=== PATIENT | female | born 1995 | race African-American/Black ===

== ENCOUNTER 2016-10-09 04:19 | Inpatient (IN) | payer OTHER, BC ==
--- NOTE | 2016-10-09 04:52 | PDOC ---
History of Present Illness - General History Source: Patient Exam Limitations: No Limitations - History of Present Illness Initial Comments: 10/09/16 06:11 The patient is a 21 year old female with no significant past medical history who presents to the ED with complaints of epigastric pain for one day. The patient reports sharp mid epigastric with associated nausea. She reports multiple episodes of vomiting yellow bile. Denies fever or chills. Denies chest pain or shortness of breath. Denies dysuria or changes in urinary output. Denies any other symptoms. <Jadiel Granados - Last Filed: 10/09/16 06:11> <Edwige Calixto - Last Filed: 10/09/16 07:14> <Lien Verma - Last Filed: 10/09/16 13:26> - General Stated Complaint: ABDOMINAL PAIN, VOMITING Time Seen by Provider: 10/09/16 04:49 Past History <Jadiel Granados - Last Filed: 10/09/16 06:11> - Past Medical History Anemia: No Asthma: No Cancer: No Cardiac Disorders: No CVA: No COPD: No CHF: No Dementia: No Diabetes: No GI Disorders: No Disorders: No HTN: No Hypercholesterolemia: No Liver Disease: No Seizures: No Thyroid Disease: No - Surgical History Abdominal Surgery: No Appendectomy: No Cardiac Surgery: No Cholecystectomy: No Lung Surgery: No Neurologic Surgery: No Orthopedic Surgery: No - Immunization History Immunization Up to Date: Yes - Psycho/Social/Smoking Cessation Hx Anxiety: No Suicidal Ideation: No Smoking Status: Yes Smoking History: Former smoker Have you smoked in the past 12 months: No Number of Cigarettes Smoked Daily: 5 If you are a former smoker, when did you quit?: 2013 Hx Alcohol Use: No Drug/Substance Use Hx: No Substance Use Type: None Hx Substance Use Treatment: No <Edwige Calixto - Last Filed: 10/09/16 07:14> <Lien Verma - Last Filed: 10/09/16 13:26> - Past Medical History Allergies/Adverse Reactions: Allergies Allergy/AdvReac Type Severity Reaction Status Date / Time Shellfish Allergy Swelling Verified 10/09/16 05:00 PEANUTS Allergy Swelling Uncoded 10/09/16 05:00 Home Medications: Ambulatory Orders NK [No Known Home Medication] 12/27/15 Review of Systems - Review of Systems Able to Perform ROS?: Yes Comments:: 10/09/16 06:11 CONSTITUTIONAL: Absent: fever, chills, diaphoresis, generalized weakness, malaise, loss of appetite HEENT: Absent: rhinorrhea, nasal congestion, throat pain, throat swelling, difficulty swallowing, mouth swelling, ear pain, eye pain, visual Changes CARDIOVASCULAR: Absent: chest pain, syncope, palpitations, irregular heart rate, lightheadedness , peripheral edema RESPIRATORY: Absent: cough, shortness of breath, dyspnea with exertion, orthopnea, wheezing, stridor, hemoptysis GASTROINTESTINAL: + vomiting, epigastric pain Absent: abdominal distension, diarrhea, constipation, melena, hematochezia GENITOURINARY: Absent: dysuria, frequency, urgency, hesitancy, hematuria, flank pain, genital pain MUSCULOSKELETAL: Absent: myalgia, arthralgia, joint swelling SKIN: Absent: rash, itching, pallor HEMATOLOGIC/IMMUNOLOGIC: Absent: easy bleeding, easy bruising, lymphadenopathy, frequent infections ENDOCRINE: Absent: unexplained weight gain, unexplained weight loss, heat intolerance, cold intolerance NEUROLOGIC: Absent: headache, focal weakness or paresthesias, dizziness, unsteady gait, seizure, mental status changes, bladder or bowel incontinence PSYCHIATRIC: Absent: anxiety, depression, suicidal or homicidal ideation, hallucinations. All Other Systems: Reviewed and Negative <Jadiel Granados - Last Filed: 10/09/16 06:11> *Physical Exam - Vital Signs Last Vital Signs Temp Pulse Resp BP Pulse Ox 98.3 F 71 18 100/69 98 10/09/16 04:57 10/09/16 04:57 10/09/16 04:57 10/09/16 04:57 10/09/16 04:57 - Physical Exam Comments: 10/09/16 06:11 GENERAL: Well developed, well nourished. Awake and alert. No acute distress. HEENT: Normocephalic, atraumatic. PERRLA, EOMI. No conjunctival pallor. Sclera are non- icteric. Moist mucous membranes. Oropharynx is clear. NECK: Supple. Full ROM. No JVD. Carotid pulses 2+ and symmetric, without bruits. No thyromegaly. NCo lymphadenopathy. CARDIOVASCULAR: Regular rate and rhythm. No murmurs, rubs, or gallops. Distal pulses are 2+ and symmetric. PULMONARY: No evidence of respiratory distress. Lungs clear to auscultation bilaterally. No wheezing, rales or rhonchi. ABDOMINAL: + Minimal epigastric pain. Soft. Non-tender. Non-distended. No rebound or guarding. No organomegaly. Normoactive bowel sounds. MUSCULOSKELETAL Normal range of motion at all joints. No bony deformities or tenderness. No CVA tenderness. EXTREMITIES: No cyanosis. No clubbing. No edema. No calf tenderness. SKIN: Warm and dry. Normal capillary refill. No rashes. No jaundice. NEUROLOGICAL: Alert, awake, appropriate. Cranial nerves 2-12 intact. No deficits to light touch and temperature in face, upper extremities and lower extremities. No motor deficits in the in face, upper extremities and lower extremities. Normoreflexic in the upper and lower extremities. Normal speech. Toes are down- going bilaterally. Gait is normal without ataxia. PSYCHIATRIC: Cooperative. Good eye contact. Appropriate mood and affect. <Jadiel Granados - Last Filed: 10/09/16 06:11> - Vital Signs Last Vital Signs Temp Pulse Resp BP Pulse Ox 98.3 F 76 19 137/87 99 10/09/16 04:57 10/09/16 08:57 10/09/16 08:57 10/09/16 08:57 10/09/16 08:57 <Lien Verma - Last Filed: 10/09/16 13:26> ED Treatment Course - LABORATORY CBC & Chemistry Diagram: 10/09/16 05:10 10/09/16 05:10 - ADDITIONAL ORDERS Additional order review: Laboratory Results 10/09/16 05:10 Sodium 139 Potassium 3.6 Chloride 103 Carbon Dioxide 22 Anion Gap 14 BUN 7 D Creatinine 0.6 Creat Clearance w eGFR > 60 Random Glucose 138 H D Calcium 9.9 Total Bilirubin 0.4 D AST 8 L D ALT 19 Alkaline Phosphatase 59 Total Protein 7.7 D Albumin 3.9 D Total Amylase 54 Lipase 75 10/09/16 05:10 RBC 4.04 MCV 90.6 MCHC 33.1 RDW 12.4 MPV 8.5 Neutrophils % 91.8 H D Lymphocytes % 6.6 L D Monocytes % 1.3 L Eosinophils % 0.0 D Basophils % 0.3 - Medications Given in the ED: ED Medications Discontinued Medications Generic Name Dose Route Start Last Admin Trade Name Jennifer PRN Reason Stop Dose Admin Famotidine/Sodium Chloride 50 mls @ 100 mls/hr 10/09/16 04:59 10/09/16 05:24 Pepcid 20 Mg Premixed Ivpb - IVPB 10/09/16 05:28 100 mls/hr ONCE ONE Administration Metoclopramide HCl 10 mg 10/09/16 05:00 10/09/16 05:24 Reglan Injection - IVPB 10/09/16 05:01 10 mg ONCE ONE Administration Morphine Sulfate 2 mg 10/09/16 04:59 10/09/16 05:24 Morphine Injection - IVPUSH 10/09/16 05:00 2 mg ONCE ONE Administration Sodium Chloride 1,000 ml 10/09/16 04:59 10/09/16 05:24 Normal Saline - IV 10/09/16 05:00 1,000 ml ONCE ONE Administration <Jadiel Granados - Last Filed: 10/09/16 06:11> - LABORATORY CBC & Chemistry Diagram: 10/09/16 05:10 10/09/16 05:10 <Edwige Calixto - Last Filed: 10/09/16 07:14> - LABORATORY CBC & Chemistry Diagram: 10/09/16 05:10 10/09/16 05:10 - ADDITIONAL ORDERS Additional order review: Laboratory Results 10/09/16 10/09/16 10/09/16 09:34 05:10 05:10 Sodium 139 Potassium 3.6 Chloride 103 Carbon Dioxide 22 Anion Gap 14 BUN 7 D Creatinine 0.6 Creat Clearance w eGFR > 60 Random Glucose 138 H D Calcium 9.9 Total Bilirubin 0.4 D AST 8 L D ALT 19 Alkaline Phosphatase 59 Total Protein 7.7 D Albumin 3.9 D Total Amylase 54 Lipase 75 Beta HCG, Quant 66771.4 Urine Color Yellow Urine Appearance Clear Urine pH 6.0 Urine Protein 1+ H Urine Glucose (UA) Negative Urine Ketones 2+ H Urine Blood Negative Urine Nitrite Negative Urine Bilirubin Negative Urine Urobilinogen Negative Ur Leukocyte Esterase Negative Urine RBC 1 Urine WBC 2 Ur Epithelial Cells Rare Urine Bacteria Rare Urine Mucus Moderate 10/09/16 05:10 RBC 4.04 MCV 90.6 MCHC 33.1 RDW 12.4 MPV 8.5 Neutrophils % 91.8 H D Lymphocytes % 6.6 L D Monocytes % 1.3 L Eosinophils % 0.0 D Basophils % 0.3 - Medications Given in the ED: ED Medications Discontinued Medications Generic Name Dose Route Start Last Admin Trade Name Jennifer PRN Reason Stop Dose Admin Acetaminophen 1,000 mg 10/09/16 09:41 10/09/16 10:45 Ofirmev Injection - IVPB 10/09/16 09:42 1,000 mg ONCE ONE Administration Famotidine/Sodium Chloride 50 mls @ 100 mls/hr 10/09/16 04:59 10/09/16 05:24 Pepcid 20 Mg Premixed Ivpb - IVPB 10/09/16 05:28 100 mls/hr ONCE ONE Administration Metoclopramide HCl 10 mg 10/09/16 05:00 10/09/16 05:24 Reglan Injection - IVPB 10/09/16 05:01 10 mg ONCE ONE Administration Morphine Sulfate 2 mg 10/09/16 04:59 10/09/16 05:24 Morphine Injection - IVPUSH 10/09/16 05:00 2 mg ONCE ONE Administration Ondansetron HCl 4 mg 10/09/16 08:17 10/09/16 08:50 Zofran Injection IVPUSH 10/09/16 08:18 4 mg ONCE ONE Administration Ondansetron HCl 4 mg 10/09/16 11:28 10/09/16 11:30 Zofran Injection IVPUSH 10/09/16 11:29 4 mg ONCE ONE Administration Sodium Chloride 1,000 ml 10/09/16 04:59 10/09/16 05:24 Normal Saline - IV 10/09/16 05:00 1,000 ml ONCE ONE Administration Sodium Chloride 1,000 ml 10/09/16 06:08 10/09/16 06:39 Normal Saline - IV 10/09/16 06:09 1,000 ml ONCE ONE Administration <Lien Verma - Last Filed: 10/09/16 13:26> Medical Decision Making - Medical Decision Making 10/09/16 07:07 Pt comes with vomiting bile and abd pain. Afebrile. Pt is cool and clammy. She cannot keep food down. She was given NSS and morphine and she feels better, She states that she has no hx of surgery, She has not doen a preg test and thinks she is not , but states that yes she could be . Pt is awaiting US of her GB, as she is morbidly obese and she has RUQ/ epigastric pain. She also has a bhcg of 55K Likely diagnosis is hyperemesis gravidum. However sono pelvis to r/o molar preg will be done. <Edwige Calixto - Last Filed: 10/09/16 07:14> - Medical Decision Making 10/09/16 07:18 Pt received at 7am signout. Presents with epigastric pain, bilious vomiting x1 day. She was found to have positive HCG on lab assessment. Awaiting sono to evaluate the as well as her gallbladder. She has received pepcid, NS x2 liters. 10/09/16 08:30 Pt continues to have nausea. Will give LR, as I suspect hyperemesis. Awaiting sono. 10/09/16 10:30 Will give additional liter of LR as she has returned from sono. 10/09/16 11:23 Pt continues to have nausea, will give additional dose of zofran. 10/09/16 13:11 Patient was able to drink small amt of juice, but unable to eat anything. She is still ill-appearing, but nontoxic. We discussed admission vs DC home. I suspect that she will not be able to drink enough to keep up with fluid requirements, will worsen quickly. She agrees to admission. I will discuss with safety physician arson investigator, as she does not have a safety physician. 10/09/16 13:16 Admitted to hospitalist service. D/w Dr. Wilson. Will evaluate as well. <Lien Verma - Last Filed: 10/09/16 13:26> *DC/Admit/Observation/Transfer - Attestations Scribe Attestion: 10/09/16 06:12 Documentation prepared by Jadiel Granados, acting as medical tech for Edwige Calixto MD <Jadiel Granados - Last Filed: 10/09/16 06:11> <Edwige Calixto - Last Filed: 10/09/16 07:14> - Discharge Dispostion Admit: Yes <Lien Verma - Last Filed: 10/09/16 13:26> Diagnosis at time of Disposition: Hyperemesis gravidarum - Discharge Dispostion Condition at time of disposition: Fair - Referrals Referrals: Basil Gonzalez [Primary Care Provider] -
[2016-10-09] MEDS ORDERED: FAMOTIDINE 20 MG/50 ML IVPB 50 ML IVPB ONE ×2 (04:59→05:02)
[2016-10-09] MEDS ORDERED: SODIUM CHLORIDE 0.9% 1000 ML INFUS.BAG IV ONE (04:59)
[2016-10-09] MEDS ORDERED: morphine CARPU-JECT 2 MG/1 ML DISP.SYRIN IVPUSH ONE (04:59)
[2016-10-09] MEDS ORDERED: METOCLOPRAMIDE HCL INJECTION 10 MG/2 ML VIAL IVPB ONE (05:00)
[2016-10-09] MEDS ORDERED: morphine CARPU-JECT 2 MG/1 ML DISP.SYRIN ONE (05:02)
[2016-10-09] MEDS ORDERED: METOCLOPRAMIDE HCL INJECTION 10 MG/2 ML VIAL ONE (05:02)
[2016-10-09 05:29] LABS: BASOPHIL 0.3 % (0-2.0); MCHC 33.1 g/dl (32.0-36.0); MEAN CELL VOLUME 90.6 fl (80-96); MEAN PLT VOLUME 8.5 fl (7.5-11.1); NEUTROPHILS 91.8 % (42.8-82.8); PLATELET COUNT 285 K/MM3 (134-434); RDW 12.4 % (11.6-15.6); WHITE BLOOD COUNT 10.1 K/mm3 (4.0-10.0)
[2016-10-09 05:59] LABS: ALBUMIN 3.9 g/dl (3.4-5.0); ALK PHOS 59 U/L (45-117); AMYLASE 54 U/L (25-115); ANION GAP 14 (8-16); BILIRUBIN,TOTAL 0.4 mg/dL (0.2-1.0); CALCIUM 9.9 mg/dL (8.5-10.1); CO2 22 mmol/L (21-32); COCKROFT - GAULT 203.6175; CREATININE 0.6 mg/dL (0.55-1.02); GLUCOSE,RANDOM 138 mg/dL (74-106); SGOT/AST 8 U/L (15-37); SGPT/ALT 19 U/L (12-78); TOT PROT 7.7 g/dl (6.4-8.2)
[2016-10-09] MEDS ORDERED: SODIUM CHLORIDE 0.9% 500 ML INFUS.BAG IV ONE (06:08)
[2016-10-09] MEDS ORDERED: ONDANSETRON 4 MG/2 ML VIAL IVPUSH ONE ×2 (08:17→11:28)
[2016-10-09] MEDS ORDERED: ONDANSETRON 4 MG/2 ML VIAL ONE ×2 (08:43→11:29)
[2016-10-09] MEDS: LACTATED RINGERS SOLUTION 1,000 ML IV SCH ×2 (08:50→10:35)
[2016-10-09] MEDS ORDERED: ACETAMINOPHEN 1000 MG/100 ML VIAL (NON FORMULARY) IVPB ONE (09:41)
[2016-10-09 10:10] LABS: URINE APPEARANCE CLEAR; URINE BILIRUBIN NEGATIVE (NEGATIVE); URINE BLOOD NEGATIVE (NEGATIVE); URINE COLOR YELLOW; URINE GLUCOSE (UA) NEGATIVE (NEGATIVE); URINE KETONE 2+ (NEGATIVE); URINE LEUK ESTERASE NEGATIVE (NEGATIVE); URINE NITRITE NEGATIVE (NEGATIVE); URINE UROBILINOGEN NEGATIVE E.U./dl (0.2-1.0)
[2016-10-09 10:18] LABS: URINE PROTEIN 1+ (NEGATIVE)
[2016-10-09 10:20] LABS: URINE BACTERIA RARE /hpf (NONE SEEN); URINE MUCUS MODERATE; URINE RBC 1 /hpf (0-3); URINE WBC 2 /hpf (3-5)
[2016-10-09] MEDS ORDERED: MAG HYDROX/AL HYDROX/SIMETH 30 ML UNIT-DOSE CUP PO PRN (14:27)
[2016-10-09] MEDS ORDERED: ACETAMINOPHEN 325 MG TABLET (FP) PO PRN (14:28)
--- NOTE | 2016-10-09 14:41 | HP ---
CHIEF COMPLAINT: 21-year-old female, presents complaining of intractable vomiting since yesterday PCP: No current PCP HISTORY OF PRESENT ILLNESS: 21 year old female, , LMP reported as 09/09/16, presents with intractable vomiting since yesterday, yellow bile, no blood. Feeling weak. Also c/o mid epigastric pain, severe, unrelenting. No fever, no diarrhea, no dysuria, no vaginal bleeding. Patent states she is planning a termination as this is not a desired . ER course was notable for: (1) IV fluids given without resolution of pain and vomiting, pepcid, zofran, morphine given without resolution of pain and vomiting. (2) pelvic sono with IUP, 9 weeks, nl heart (3) RUQ sono with no gallstones, nl ducts Recent Travel: none PAST MEDICAL HISTORY: , hx of cervical insufficiency, treated and was able to carry to 39+ weeks LMP 09/09/16 MRSA abscess on thigh, I and D and admitted for IV antibiotics PAST SURGICAL HISTORY: I an D for MRSA thigh abscess Social History: Smoking: none Alcohol: occasional social Drugs: none Family History: negative Allergies Shellfish Allergy (Verified 10/09/16 05:00) Swelling PEANUTS Allergy (Uncoded 10/09/16 05:00) Swelling HOME MEDICATIONS: Home Medications Medication Instructions Recorded NK [No Known Home Medication] 12/27/15 REVIEW OF SYSTEMS CONSTITUTIONAL: Absent: fever, chills, diaphoresis, generalized weakness, malaise, loss of appetite, weight change HEENT: Absent: rhinorrhea, nasal congestion, throat pain, throat swelling, difficulty swallowing, mouth swelling, ear pain, eye pain, visual changes CARDIOVASCULAR: Absent: chest pain, syncope, palpitations, irregular heart rate, lightheadedness , peripheral edema RESPIRATORY: Absent: cough, shortness of breath, dyspnea with exertion, orthopnea, wheezing, stridor, hemoptysis GASTROINTESTINAL: + vomiting bile, intractable vomiting since yesterday, ongoing nausea, epigastric pain, continuous Absent: abdominal distension, diarrhea, constipation, melena, hematochezia GENITOURINARY: Absent: dysuria, frequency, urgency, hesitancy, hematuria, flank pain, genital pain, vaginal bleeding MUSCULOSKELETAL: Absent: myalgia, arthralgia, joint swelling, back pain, neck pain SKIN: Absent: rash, itching, pallor HEMATOLOGIC/IMMUNOLOGIC: Absent: easy bleeding, easy bruising, lymphadenopathy, frequent infections ENDOCRINE: Absent: unexplained weight gain, unexplained weight loss, heat intolerance, cold intolerance NEUROLOGIC: Absent: headache, focal weakness or paresthesias, dizziness, unsteady gait, seizure, mental status changes, bladder or bowel incontinence PSYCHIATRIC: Absent: anxiety, depression, suicidal or homicidal ideation, hallucinations. PHYSICAL EXAMINATION GENERAL: Awake, alert, and fully oriented, in no acute distress. c/o epigastric pain, continuous HEAD: Normal with no signs of trauma. EYES: Pupils equal, round and reactive to light, extraocular movements intact, sclera anicteric, conjunctiva clear. No lid lag. EARS, NOSE, THROAT: Ears normal, nares patent, oropharynx clear without exudates. Moist mucous membranes. NECK: Normal range of motion, supple without lymphadenopathy, JVD, or masses. LUNGS: Breath sounds equal, clear to auscultation bilaterally. No wheezes, and no crackles. No accessory muscle use. HEART: Regular rate and rhythm, normal S1 and S2 without murmur, rub or gallop. ABDOMEN: Obese, Soft, nontender, not distended, normoactive bowel sounds, no guarding, no rebound, no masses. No hepatomegaly or splenomegaly. No epigastric tenderness despite c/o epig pain, negative Tate's sign. MUSCULOSKELETAL: Normal range of motion at all joints. No bony deformities or tenderness. No CVA tenderness. UPPER EXTREMITIES: 2+ pulses, warm, well-perfused. No cyanosis. No clubbing. No peripheral edema. LOWER EXTREMITIES: 2+ pulses, warm, well-perfused. No calf tenderness. No peripheral edema. NEUROLOGICAL: Cranial nerves II-XII intact. Normal speech. Normal gait. PSYCHIATRIC: Cooperative. Good eye contact. Appropriate mood and affect. SKIN: Warm, dry, normal turgor, no rashes or lesions noted, normal capillary refill. Laboratory Tests 10/09/16 10/09/16 10/09/16 05:10 05:10 05:10 WBC 10.1 H D RBC 4.04 Hgb 12.1 Hct 36.6 MCV 90.6 MCHC 33.1 RDW 12.4 Plt Count 285 MPV 8.5 Neutrophils % 91.8 H D Lymphocytes % 6.6 L D Monocytes % 1.3 L Eosinophils % 0.0 D Basophils % 0.3 Sodium 139 Potassium 3.6 Chloride 103 Carbon Dioxide 22 Anion Gap 14 BUN 7 D Creatinine 0.6 Creat Clearance w eGFR > 60 Random Glucose 138 H D Calcium 9.9 Total Bilirubin 0.4 D AST 8 L D ALT 19 Alkaline Phosphatase 59 Total Protein 7.7 D Albumin 3.9 D Total Amylase 54 Lipase 75 Beta HCG, Quant 66315.4 Urine Color Urine Appearance Urine pH Ur Specific [place] Urine Protein Urine Glucose (UA) Urine Ketones Urine Blood Urine Nitrite Urine Bilirubin Urine Urobilinogen Ur Leukocyte Esterase Urine RBC Urine WBC Ur Epithelial Cells Urine Bacteria Urine Mucus 10/09/16 09:34 WBC RBC Hgb Hct MCV MCHC RDW Plt Count MPV Neutrophils % Lymphocytes % Monocytes % Eosinophils % Basophils % Sodium Potassium Chloride Carbon Dioxide Anion Gap BUN Creatinine Creat Clearance w eGFR Random Glucose Calcium Total Bilirubin AST ALT Alkaline Phosphatase Total Protein Albumin Total Amylase Lipase Beta HCG, Quant Urine Color Yellow Urine Appearance Clear Urine pH 6.0 Ur Specific [place] >= 1.030 H Urine Protein 1+ H Urine Glucose (UA) Negative Urine Ketones 2+ H Urine Blood Negative Urine Nitrite Negative Urine Bilirubin Negative Urine Urobilinogen Negative Ur Leukocyte Esterase Negative Urine RBC 1 Urine WBC 2 Ur Epithelial Cells Rare Urine Bacteria Rare Urine Mucus Moderate pelvic sono with L ovarian cyst and nl IUP, nl FH at 160 RUQ sono neg for gallstones ASSESSMENT/PLAN: Hyperemesis in , failed ED therapy, admit for ongoing IV fluids, antiemetics, pain meds for epigastric pain. Sono negative for gallstones. : 9+ weeks by sono despite LMP 3 weeks ago per patient report. Fetus is normal by sono. Patient desires termination and she states she is planning to go to her prior provider in the [place] for termination post discharge. Epigastric pain is likely due to acid and gastritis from repetitive vomting, abd exam is benign, WBC is 10 with left shift but no signs of infection. Prophylaxis with heparin SQ while hospitalized. Problem List - Problem (1) Code(s): Z33.1 - STATE, INCIDENTAL Qualifiers: Weeks of gestation: 9 weeks Qualified Code(s): Z3A.09 - 9 weeks gestation of (2) Hyperemesis complicating , antepartum Code(s): O21.0 - MILD HYPEREMESIS GRAVIDARUM (3) Intractable vomiting Code(s): R11.10 - VOMITING, UNSPECIFIED Qualifiers: Vomiting type: unspecified Nausea presence: with nausea Qualified Code(s): R11.2 - Nausea with vomiting, unspecified Visit type - Emergency Visit Emergency Visit: Yes ED Registration Date: 10/09/16 Care time: The patient presented to the Emergency Department on the above date and was hospitalized for further evaluation of their emergent condition. - New Patient This patient is new to me today: Yes Date on this admission: 10/09/16 - Critical Care Critical Care patient: No
[2016-10-09 15:14] VITALS: BMI 40.1
[2016-10-09] MEDS ORDERED: MAG HYDROX/AL HYDROX/SIMETH 30 ML UNIT-DOSE CUP PO ONE (15:15)
[2016-10-09] MEDS ORDERED: PROCHLORPERAZINE INJECTION 10 MG/2 ML VIAL IVPB ONE (15:15)
[2016-10-09] MEDS: DEXTROSE 5%-NORMAL SALINE 1,000 ML IV SCH ×2 (15:54→22:00)
[2016-10-09] MEDS: PROCHLORPERAZINE INJECTION 10 MG/2 ML VIAL IVPB PRN (17:14)
[2016-10-09] MEDS: HEPARIN NA (PORCINE) 5,000 UNITS/ML 1ML VIAL SQ SCH (21:43)
[2016-10-10] MEDS: PROCHLORPERAZINE INJECTION 10 MG/2 ML VIAL IVPB PRN ×3 (01:22→22:58)
[2016-10-10 07:19] LABS: MCH 30.8 pg (25.7-33.7); MCHC 33.9 g/dl (32.0-36.0); MEAN CELL VOLUME 90.8 fl (80-96); MEAN PLT VOLUME 8.9 fl (7.5-11.1); PLATELET COUNT 218 K/MM3 (134-434); RDW 12.4 % (11.6-15.6); WHITE BLOOD COUNT 7.3 K/mm3 (4.0-10.0)
[2016-10-10 07:50] LABS: CALCIUM 8.8 mg/dL (8.5-10.1); COCKROFT - GAULT 345.525; CREATININE 0.4 mg/dL (0.55-1.02); MAGNESIUM 2.1 mg/dL (1.8-2.4)
[2016-10-10] MEDS: ONDANSETRON 4 MG/2 ML VIAL IVPB PRN (08:21)
[2016-10-10] MEDS: HEPARIN NA (PORCINE) 5,000 UNITS/ML 1ML VIAL SQ SCH ×2 (10:59→21:27)
[2016-10-10] MEDS: LACTATED RINGERS SOLUTION 1,000 ML IV SCH ×2 (10:59)
[2016-10-10] MEDS: DEXTROSE 5%-NORMAL SALINE 1,000 ML IV SCH ×3 (11:00→18:08)
--- NOTE | 2016-10-10 12:55 | PN ---
Physical Exam: SUBJECTIVE: Patient seen and examined. She continues to have nausea and vomiting. OBJECTIVE: Vital Signs Period Temp Pulse Resp BP Sys/Lozano Pulse Ox Last 24 Hr 98.0 F-98.6 F 61-82 20-20 122-138/52-71 97-98 GENERAL: The patient is awake, alert, and fully oriented, in no acute distress. LUNGS: Breath sounds equal, clear to auscultation bilaterally, no wheezes, no crackles, no accessory muscle use. HEART: Regular rate and rhythm, S1, S2 without murmur, rub or gallop. ABDOMEN: Obese, soft, nontender, nondistended, normoactive bowel sounds, no guarding, no rebound, no hepatosplenomegaly, no masses. EXTREMITIES: 2+ pulses, warm, well-perfused, no edema. Laboratory Results - last 24 hr 10/10/16 10/10/16 06:15 06:15 WBC 7.3 RBC 3.57 L Hgb 11.0 Hct 32.4 MCV 90.8 MCHC 33.9 RDW 12.4 Plt Count 218 D MPV 8.9 Sodium 139 Potassium 3.3 L Chloride 106 Carbon Dioxide 25 Anion Gap 8 BUN 4 L D Creatinine 0.4 L D Random Glucose 134 H Calcium 8.8 Magnesium 2.1 Active Medications Generic Name Dose Route Start Last Admin Trade Name Juanq PRN Reason Stop Dose Admin Acetaminophen 650 mg 10/09/16 14:28 Tylenol - PO Q4H PRN FEVER OR PAIN Al Hydroxide/Mg Hydroxide 30 ml 10/09/16 14:27 Mylanta Oral Suspension - PO Q6H PRN DYSPEPSIA Diphenhydramine HCl 25 mg 10/09/16 14:26 10/10/16 11:03 Benadryl Injection - IVPB 25 mg Q4H PRN Administration nausea vomiting Heparin Sodium (Porcine) 5,000 unit 10/09/16 22:00 10/10/16 10:59 Heparin - SQ Not Given BID ECTOR Lactated Ringer's 1,000 mls @ 500 mls/hr 10/09/16 08:30 10/10/16 10:59 Lactated Ringers Solution IV Not Given ASDIR ECTOR Lactated Ringer's 1,000 mls @ 500 mls/hr 10/09/16 10:30 10/10/16 10:59 Lactated Ringers Solution IV Not Given ASDIR ECTOR Dextrose/Sodium Chloride 1,000 mls @ 100 mls/hr 10/09/16 14:15 10/10/16 11:00 D5-Ns - IV 100 mls/hr ASDIR ECTOR Administration Ondansetron HCl 4 mg 10/09/16 14:09 10/10/16 08:21 Zofran Injection IVPB 4 mg Q4H PRN Administration NAUSEA Prochlorperazine Edisylate 10 mg 10/09/16 14:25 10/10/16 01:22 Compazine Injection - IVPB 10 mg Q4H PRN Administration NAUSEA AND/OR VOMITING ASSESSMENT/PLAN: This is a 21-year-old woman with a history of an MRSA abscess of her thigh who presented to the ER with nausea and vomiting. 1. Hyperemesis gravidarum - Continue IV fluid, Compazine as needed - Awaiting steel burner consult 2. Visit type - Emergency Visit Emergency Visit: Yes ED Registration Date: 10/09/16 Care time: The patient presented to the Emergency Department on the above date and was hospitalized for further evaluation of their emergent condition. - New Patient This patient is new to me today: Yes Date on this admission: 10/10/16 - Critical Care Critical Care patient: No - Discharge Referral Referred to [facility] No
[2016-10-10] MEDS ORDERED: PT OWN MED DRAWER 7, Y5N ONE (15:59)
[2016-10-10] MEDS ORDERED: POTASSIUM CHLORIDE TABS 20 MEQ TABLET.ER (FP) PO ONE (17:44)
--- NOTE | 2016-10-10 22:47 | CON.OBG ---
Consult Consult Specialty:: obgyn Reason for Consultation:: admitted with iup 9 week, hyeremesis - History of Present Illness Chief Complaint: nausea and vomiting History of Present Illness: 21 y/o admitted with iup 9 weeks, nausea and vomiting. Pt was refractory to meds in er and started on iv. Pt states feels better slightly. No vaginal bleeding. 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: Alzheimer's, CVA, Dementia, Migraine, Multiple Sclerosis, Peripheral Neuropathy, Parkinson's, Seizure, Syncope, TIA, Vertigo, Other Cardio/Vascular: No: AFIB, Aneurysm, Aortic Insufficiency, Aortic Stenosis, CAD , CHF, Deep Vein Thrombosis, HTN, Hyperlipdemia, NH, Mitral Insufficiency, Mitral Stenosis, Murmur, Pulmonary Hypertension, Other Pulmonary: No: Asthma, Bronchitis, Cancer, COPD, O2 Dependent, Pneumonia, Previously Intubated, Pulmonary Embolus, Pulmonary Fibrosis, Sleep Apnea, Other Gastrointestinal: No: Ascites, Cancer, Constipation, Crohn's Disease, Diverticulitis, Diverticulosis, Esophageal Varices, Gastritis, GERD, GI Bleed, Hemorrhoids, Hiatal Hernia, Inflamatory Bowel Disease, Irritable Bowel Disease, Pancreatitis, Peptic Ulcer Disease, Ulcerative Colitis, Other Hepatobiliary: No: Cirrhosis, Cholelithiasis, Cholecystitis, Choledocholithiasis , Hepatitis A, Hepatitis B, Hepatitis C, Other Renal/: No: Renal Failure, Renal Inusuff, BPH, Cancer, Hematuria, Hemodialysis , Neurogenic Bladder, Renal Calculi, UTI, Other Reproductive: No: Ectopic , Endometriosis, Fibroids, PID, Polycystic Ovary Syndrome, Postmenopausal, Other ...LMP: 12/08/15 ...: Yes Heme/Onc: No: Anemia, B12 Deficiency, Bleeding Disorder, Cancer, Current Chemotherapy, Current Radiation Therapy, Hemochromatosis, Hypercoaguable State, Myeloproliferative Synd, Sickle Cell Disease, Sickle Cell Trait, Thrombocytopenia, Other Musculoskeletal: No: Bursitis, Chronic low back pain, Hemiparesis, Hemiplegia, Osteoarthritis, Paraplegia, Other Rheumatology: No: Fibromyalgia, Gout, Lupus, Rheumatoid Arthritis, Sarcoidosis, Vasculitis, Other Endocrine: No: [place]'s Disease, [place]'s Disease, Diabetes Insipidus, Diabetes Mellitus, Hyperparathyroidism, Hyperthyroidism, Hypothyroidism, Osteopenia, SIADH, Other Additional Medical History: obesitiy - Alcohol/Substance Use Hx Alcohol Use: No - Smoking History Smoking history: Former smoker Have you smoked in the past 12 months: No Aproximately how many cigarettes per day: 5 If you are a former smoker, when did you quit?: 2013 - Social History History of Recent Travel: No Home Medications - Allergies Allergies/Adverse Reactions: Allergies Allergy/AdvReac Type Severity Reaction Status Date / Time Shellfish Allergy Swelling Verified 10/09/16 05:00 PEANUTS Allergy Swelling Uncoded 10/09/16 05:00 - Home Medications Home Medications: Ambulatory Orders NK [No Known Home Medication] 12/27/15 Review of Systems - Review of Systems Constitutional: reports: No Symptoms Eyes: reports: No Symptoms HENT: reports: No Symptoms Neck: reports: No Symptoms Cardiovascular: reports: No Symptoms Respiratory: reports: No Symptoms Gastrointestinal: reports: No Symptoms Genitourinary: reports: No Symptoms Breasts: reports: No Symptoms Reported Musculoskeletal: reports: No Symptoms Integumentary: reports: No Symptoms Neurological: reports: No Symptoms Endocrine: reports: No Symptoms Hematology/Lymphatic: reports: No Symptoms Psychiatric: reports: No Symptoms 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: Vital Signs Temperature 98.7 F 10/10/16 14:05 Pulse Rate 59 L 10/10/16 14:05 Respiratory Rate 20 10/10/16 21:00 Blood Pressure 128/64 10/10/16 14:05 O2 Sat by Pulse Oximetry (%) 98 10/09/16 21:00 Constitutional: Yes: Well Nourished Eyes: Yes: WNL HENT: Yes: WNL Neck: Yes: WNL Cardiovascular: Yes: WNL Respiratory: Yes: WNL Gastrointestinal: Yes: WNL ...Rectal Exam: Yes: WNL Renal/: Yes: WNL Pelvis: Yes: WNL Vaginal Exam: Yes: Normal Cervix: Yes: Normal Labs: CBC, BMP 10/10/16 06:15 10/10/16 06:15 Assessment/Plan continue iv hydratoin antihyperemetic drugs check tsh, t4 consider po or pr meds for discahrge
[2016-10-11] MEDS: ONDANSETRON 4 MG/2 ML VIAL IVPB PRN ×2 (04:25→14:30)
[2016-10-11 08:37] LABS: COCKROFT - GAULT 353.294; CREATININE 0.4 mg/dL (0.55-1.02)
--- NOTE | 2016-10-11 09:29 | PN ---
Teaching Attending Note Name of Resident: Montse Luu ATTENDING PHYSICIAN STATEMENT I saw and evaluated the patient. I reviewed the resident's note and discussed the case with the resident. I agree with the resident's findings and plan as documented. SUBJECTIVE: Patient is feeling better. OBJECTIVE: Vital Signs Period Temp Pulse Resp BP Sys/Lozano Pulse Ox Last 24 Hr 98.3 F-98.7 F 59-62 20-20 128-132/64-70 LUNGS: Breath sounds equal, clear to auscultation bilaterally, no wheezes, no crackles, no accessory muscle use. HEART: Regular rate and rhythm, S1, S2 without murmur, rub or gallop. ABDOMEN: Obese, soft, nontender, nondistended, normoactive bowel sounds, no guarding, no rebound, no hepatosplenomegaly, no masses. EXTREMITIES: 2+ pulses, warm, well-perfused, no edema. ASSESSMENT AND PLAN: This is a 21-year-old woman with a history of an MRSA abscess of her thigh who presented to the ER with nausea and vomiting. 1. Hyperemesis gravidarum - Continue IV fluid, Compazine as needed - technical advisor consult appreciated - Advance diet 2. 3. Disposition - Discharge when tolerating PO
[2016-10-11] MEDS ORDERED: POTASSIUM CHLORIDE TABS 20 MEQ TABLET.ER (FP) PO ONE ×2 (09:45→10:30)
[2016-10-11] MEDS: HEPARIN NA (PORCINE) 5,000 UNITS/ML 1ML VIAL SQ SCH (10:35)
[2016-10-11] MEDS: LACTATED RINGERS SOLUTION 1,000 ML IV SCH (10:38)
[2016-10-11] MEDS: DEXTROSE 5%-NORMAL SALINE 1,000 ML IV SCH (14:32)
[2016-10-11 19:04] VITALS: BP 120/75; PULSE 92; TEMP 98
--- NOTE | 2016-10-11 19:34 | PN ---
Physical Exam: SUBJECTIVE: Patient seen and examined by me at bedside. Patient reports she is feeling better than yesterday but still has nausea and vomiting. She states she would like to try a regular diet to see if she is able to tolerate. OBJECTIVE: Vital Signs Period Temp Pulse Resp BP Sys/Lozano Pulse Ox Last 24 Hr 98 F-98.4 F 62-92 20-20 116-132/70-75 98-98 GENERAL: The patient is awake, alert, and fully oriented, in no acute distress.e. LUNGS: Breath sounds equal, clear to auscultation bilaterally, no wheezes, no crackles, no accessory muscle use. HEART: Regular rate and rhythm, S1, S2 without murmur, rub or gallop. ABDOMEN: Soft, Obese, nontender, nondistended, normoactive bowel sounds, no guarding. EXTREMITIES: No peripheral edema. Laboratory Results - last 24 hr 10/11/16 06:30 Sodium 137 Potassium 3.4 L Chloride 104 Carbon Dioxide 24 Anion Gap 9 BUN 3 L D Creatinine 0.4 L Random Glucose 100 D Calcium 9.0 Active Medications Generic Name Dose Route Start Last Admin Trade Name Freq PRN Reason Stop Dose Admin Acetaminophen 650 mg 10/09/16 14:28 10/10/16 20:15 Tylenol - PO 650 mg Q4H PRN Administration FEVER OR PAIN Al Hydroxide/Mg Hydroxide 30 ml 10/09/16 14:27 10/10/16 20:15 Mylanta Oral Suspension - PO 30 ml Q6H PRN Administration DYSPEPSIA Diphenhydramine HCl 25 mg 10/09/16 14:26 10/10/16 11:03 Benadryl Injection - IVPB 25 mg Q4H PRN Administration nausea vomiting Heparin Sodium (Porcine) 5,000 unit 10/09/16 22:00 10/11/16 10:35 Heparin - SQ 5,000 unit BID ECTOR Administration Lactated Ringer's 1,000 mls @ 500 mls/hr 10/09/16 08:30 10/10/16 10:59 Lactated Ringers Solution IV Not Given ASDIR ECTOR Lactated Ringer's 1,000 mls @ 500 mls/hr 10/09/16 10:30 10/11/16 10:38 Lactated Ringers Solution IV Not Given ASDIR ECTOR Dextrose/Sodium Chloride 1,000 mls @ 100 mls/hr 10/09/16 14:15 10/11/16 14:32 D5-Ns - IV 100 mls/hr ASDIR ECTOR Administration Ondansetron HCl 4 mg 10/09/16 14:09 10/11/16 14:30 Zofran Injection IVPB 4 mg Q4H PRN Administration NAUSEA Prochlorperazine Edisylate 10 mg 10/09/16 14:25 10/10/16 22:58 Compazine Injection - IVPB 10 mg Q4H PRN Administration NAUSEA AND/OR VOMITING ASSESSMENT/PLAN: Patient is a 21 year old woman @ 9 weeks with a PMHx of MRSA abscess of the thigh who presented for intractable nausea and vomiting. Patient admitted for further monitoring and management. Hyperemesis Gravidarum -Continue IV fluids with D5-NS @100mls/hr -Continue Compazine 10mg Q4H PRN and Zofran 4mg Q4H PRN for nausea and vomiting -OBGYN consultation appreciated -Will advance diet if tolerated -9 weeks according to U/S Hypokalemia -Likely secondary to vomiting -K-DUR 40 meq given -Will continue to monitor F/E/N -IV D5-NS @100mls/hr -Electrolytes: Hypokalemia repleted -Regular Diet Prophylaxis -Heparin 5000 sq BID Disposition -May be discharged if tolerates PO Visit type - Emergency Visit Emergency Visit: Yes ED Registration Date: 10/09/16 Care time: The patient presented to the Emergency Department on the above date and was hospitalized for further evaluation of their emergent condition. - New Patient This patient is new to me today: Yes Date on this admission: 10/12/16 - Critical Care Critical Care patient: No
--- NOTE | 2016-10-11 22:11 | DS ---
Physical Exam: Vital Signs Period Temp Pulse Resp BP Sys/Lozano Pulse Ox Last 24 Hr 98 F-98.4 F 62-92 20-20 116-132/70-75 98-98 LABS Laboratory Results - last 24 hr 10/11/16 06:30 Sodium 137 Potassium 3.4 L Chloride 104 Carbon Dioxide 24 Anion Gap 9 BUN 3 L D Creatinine 0.4 L Random Glucose 100 D Calcium 9.0 HOSPITAL COURSE: Patient is a 21 year old woman @ 9 weeks with a PMHx of MRSA abscess of the thigh who presented for intractable nausea and bilious vomiting. Patient failed ED therapy with zofran, reglan and fluids and was then admitted for further monitoring. Patient was also complaining of epigastric pain likely due to gastritis from vomiting. Patient reports she is planning on terminating the as this was not a desired . Throughout the hospital course patient was found to be hypokalemic and was repleted with Potassium chloride. She received Zofran and fluids throughout the hospital stay and diet was advanced as tolerated. Once patient tolerated regular diet she would be discharged. Patient's nausea and vomiting improved and tolerated PO. She wad stable and steady for discharge. Patient is to follow up with her OBGYN doctor this week and has plans for an . She was also given instructions to follow up with her PCP. Patient was discharged with a prescription for Zofran. Date of Admission:10/09/16 Date of Discharge: 10/11/16 Minutes to complete discharge: 45 Discharge Summary Reason For Visit: HYPEREMESIS GRAVIDARUM Condition: Stable - Instructions Diet, Activity, Other Instructions: Discharge Home resume Home diet Resume home activity Resume Home medication Follow up with primary care physician within 1 week Follow up with OBGYN within 1 week Start Zofran 1 tablet as needed every 6 hours for nausea Start Diclegis 2 tablets every night for next 3 days for Nausea and vomiting prevention If you start having severe vomiting and not tolerating food, please contact your Primary care physician/OBGYN or come to the emergency room. Referrals: Roberth Wilson MD [Staff Physician] - Basil Gonzalez [Primary Care Provider] - Disposition: HOME - Home Medications Comprehensive Discharge Medication List: Ambulatory Orders Doxylamine/Pyridoxine HCl [Anali Wright 10-10 mg Tablet] 1 each PO HS #14 tablet. 10/11/16 Ondansetron HCl [Zofran] 4 mg PO Q6H #28 tablet 10/11/16 This patient is new to me today: Yes Date on this admission: 10/12/16 Emergency Visit: Yes ED Registration Date: 10/09/16 Care time: The patient presented to the Emergency Department on the above date and was hospitalized for further evaluation of their emergent condition. Critical Care patient: No - Discharge Referral Referred to [facility] No
== END 2016-10-11 21:30 | disposition home or self-care (01) | DRG 781 ==
LOC: JER 04:19 → JERBED 13:16 → J6S 14:42
PROVIDERS: ADMIT Emergency Medicine; ATTEND Internal Medicine
DX: O21.0 Mild hyperemesis gravidarum (principal); Z68.41 Body mass index [BMI] 40.0-44.9, adult; E87.6 Hypokalemia; E66.01 Morbid (severe) obesity due to excess calories; K29.70 Gastritis, unspecified, without bleeding; Z3A.09 9 weeks gestation of pregnancy; Z86.14 Personal history of Methicillin resistant Staphylococcus aureus infection
CPT/HCPCS: 36415; 76705-TC; 76801-TC; 80048; 80053; 81003; 81015; 82150; 83690; 83735; 84702; 85025; 85027; 99282-25; J1644

== ENCOUNTER 2017-03-07 21:17 | Emergency (ER) | payer OTHER, BC ==
[2017-03-07 21:21] VITALS: BMI 41.5
[2017-03-07] MEDS ORDERED: METOCLOPRAMIDE HCL INJECTION 10 MG/2 ML VIAL IVPUSH ONE (22:01)
[2017-03-07] MEDS ORDERED: SODIUM CHLORIDE 500 ML IV STA (22:01)
[2017-03-07] MEDS ORDERED: METOCLOPRAMIDE HCL INJECTION 10 MG/2 ML VIAL ONE (22:22)
[2017-03-07 22:47] LABS: BASOPHIL 0.5 % (0-2.0); EOSINOPHIL 0.3 % (0-4.5); MCH 30.6 pg (25.7-33.7); MCHC 34.5 g/dl (32.0-36.0); MEAN CELL VOLUME 88.7 fl (80-96); MEAN PLT VOLUME 8.4 fl (7.5-11.1); NEUTROPHILS 93.9 % (42.8-82.8); PLATELET COUNT 276 K/MM3 (134-434); RDW 12.5 % (11.6-15.6); WHITE BLOOD COUNT 8.7 K/mm3 (4.0-10.0)
[2017-03-07 23:09] LABS: ANION GAP 12 (8-16); BILIRUBIN,TOTAL 0.4 mg/dL (0.2-1.0); CALCIUM 9.4 mg/dL (8.5-10.1); CO2 19 mmol/L (21-32); CREATININE 0.7 mg/dL (0.55-1.02); GLUCOSE,RANDOM 161 mg/dL (74-106); SGOT/AST 8 U/L (15-37); SGPT/ALT 22 U/L (12-78); TOT PROT 7.8 g/dl (6.4-8.2)
[2017-03-07 23:24] LABS: ALK PHOS 74 U/L (45-117)
--- NOTE | 2017-03-07 23:54 | PDOC ---
Attending Attestation - Resident Resident Name: AsuncionMadhav - ED Attending Attestation I have performed the following: I have examined & evaluated the patient, The case was reviewed & discussed with the resident, I agree w/resident's findings & plan, Exceptions are as noted - HPI HPI: 03/07/17 23:45 21yo F hx D&C 09/2016 p/w 1 day of NBNB nausea/vomiting and epigastric pain. LMP 1 month ago. Pt believes she may be . Denies pelvic pain, vaginal bleeding or discharge. Pt had hyperemesis gravidarum in September prior to her . Denies CP/SOB, headache, focal weakness or numbness, dysuria. - Physicial Exam PE: 03/07/17 23:54 GENERAL: Awake, alert, and fully oriented, in no acute distress HEAD: No signs of trauma EYES: PERRLA, EOMI, sclera anicteric, conjunctiva clear ENT: Auricles normal inspection, hearing grossly normal, nares patent, oropharynx clear without exudates. Moist mucosa NECK: Normal ROM, supple, no lymphadenopathy, JVD, or masses LUNGS: Breath sounds equal, clear to auscultation bilaterally. No wheezes, and no crackles HEART: Regular rate and rhythm, normal S1 and S2, no murmurs, rubs or gallops ABDOMEN: Soft, nontender, normoactive bowel sounds. No guarding, no rebound. No masses EXTREMITIES: Normal range of motion, no edema. No clubbing or cyanosis. No cords, erythema, or tenderness NEUROLOGICAL: Normal speech, cranial nerves intact, negative pronator drift, 5/ 5 strength in all 4 extremities, normal sensation to light touch in all 4 extremities, normal cerebellar exam, normal gait, normal reflexes and tone SKIN: Warm, Dry, normal turgor, no rashes or lesions noted. - Medical Decision Making 03/08/17 05:09 21yo F p/w N/V, epigastric pain. Found to be ~4 weeks here. US with possible bradycardia. Results discussed with patient who states that she does not want to keep this and will be arranging for . Pt tolerating PO. Remainder of labs unremarkable. Pt feels better and will be discharged. I discussed the physical exam findings, ancillary test results and final diagnoses with the patient. I answered all of the patient's questions. The patient was satisfied with the care received and felt comfortable with the discharge plan and treatment plan. The patient will call their primary care physician within 24 hours to arrange follow-up and will return to the Emergency Department with any new, persistent or worsening symptoms.
[2017-03-08 00:55] LABS: URINE APPEARANCE SLCLOUDY; URINE BILIRUBIN NEGATIVE (NEGATIVE); URINE BLOOD NEGATIVE (NEGATIVE); URINE COLOR YELLOW; URINE GLUCOSE (UA) NEGATIVE (NEGATIVE); URINE KETONE 2+ (NEGATIVE); URINE NITRITE NEGATIVE (NEGATIVE); URINE PROTEIN 1+ (NEGATIVE)
[2017-03-08 01:00] LABS: URINE MUCUS FEW; URINE RBC 1 /hpf (0-3)
[2017-03-08 01:33] LABS: URINE WBC 2 /hpf (3-5)
[2017-03-08] MEDS ORDERED: ONDANSETRON 4 MG/2 ML VIAL IVPUSH ONE (01:38)
[2017-03-08] MEDS ORDERED: ONDANSETRON 4 MG/2 ML VIAL ONE (01:39)
--- NOTE | 2017-03-08 02:07 | PDOC ---
History of Present Illness - General Chief Complaint: Nausea/Vomiting Stated Complaint: NAUSEA/VOMITING Time Seen by Provider: 03/07/17 21:49 History Source: Patient Exam Limitations: No Limitations - History of Present Illness Initial Comments: 03/08/17 03:50 21F previously seen in the ED in 09/2016 with admission for vomiting in the context of followed by D&C presents today with similar symptoms of nausea, vomiting and epigastric pain. LMP was 1 month ago. Pt admits to possibly being . Denies pelvic pain, vaginal bleeding or discharge. Denies CP/SOB, headache, focal weakness or numbness, dysuria. Past History - Past Medical History Allergies/Adverse Reactions: Allergies Allergy/AdvReac Type Severity Reaction Status Date / Time Shellfish Allergy Swelling Verified 03/07/17 21:21 PEANUTS Allergy Swelling Uncoded 03/07/17 21:21 Home Medications: Ambulatory Orders Ondansetron [Zuplenz] 4 mg PO PRN 03/07/17 Anemia: No Asthma: No Cancer: No Cardiac Disorders: No CVA: No COPD: No CHF: No Dementia: No Diabetes: No GI Disorders: No Disorders: No HTN: No Hypercholesterolemia: No Liver Disease: No Seizures: No Thyroid Disease: No - Surgical History Abdominal Surgery: No Appendectomy: No Cardiac Surgery: No Cholecystectomy: No Lung Surgery: No Neurologic Surgery: No Orthopedic Surgery: No - Immunization History Immunization Up to Date: Yes - Suicide/Smoking/Psychosocial Hx Smoking Status: Yes Smoking History: Never smoked Have you smoked in the past 12 months: No Number of Cigarettes Smoked Daily: 5 If you are a former smoker, when did you quit?: 2013 Information on smoking cessation initiated: No Hx Alcohol Use: No Drug/Substance Use Hx: No Substance Use Type: None Hx Substance Use Treatment: No Review of Systems - Review of Systems Able to Perform ROS?: Yes Is the patient limited Citizen Of [place] proficient: No Constitutional: Yes: Loss of Appetite. No: Symptoms Reported HEENTM: No: Symptoms Reported Respiratory: No: Symptoms reported Cardiac (ROS): No: Symptoms Reported ABD/GI: Yes: See HPI : No: Symptoms Reported Musculoskeletal: No: Symptoms Reported Integumentary: No: Symptoms Reported All Other Systems: Reviewed and Negative *Physical Exam - Vital Signs Last Vital Signs Temp Pulse Resp BP Pulse Ox 78 18 130/71 99 03/07/17 21:19 03/07/17 21:19 03/07/17 22:47 03/07/17 21:19 - Physical Exam General Appearance: Yes: Nourished, Appropriately Dressed, Moderate Distress, Obese HEENT: positive: EOMI, DENISE, Normal ENT Inspection Neck: negative: Tender Respiratory/Chest: positive: Lungs Clear, Normal Breath Sounds. negative: Chest Tender, Respiratory Distress Cardiovascular: positive: Regular Rhythm, Regular Rate, S1, S2 Gastrointestinal/Abdominal: positive: Normal Bowel Sounds, Tender (epigastric) ED Treatment Course - LABORATORY CBC & Chemistry Diagram: 03/07/17 22:01 03/07/17 22:40 - ADDITIONAL ORDERS Additional order review: Laboratory Results 03/08/17 03/07/17 00:15 22:40 Sodium 137 Potassium 3.6 Chloride 106 Carbon Dioxide 19 L D Anion Gap 12 BUN 8 D Creatinine 0.7 D Creat Clearance w eGFR > 60 Random Glucose 161 H D Calcium 9.4 Total Bilirubin 0.4 AST 8 L ALT 22 Alkaline Phosphatase 74 D Total Protein 7.8 Albumin 4.0 Beta HCG, Quant 24454.3 Urine Color Yellow Urine Appearance Slcloudy Urine pH 7.0 Urine Protein 1+ H Urine Glucose (UA) Negative Urine Ketones 2+ H Urine Blood Negative Urine Nitrite Negative Urine Bilirubin Negative Urine Urobilinogen 2.0 H Urine RBC 1 Ur Epithelial Cells Rare Urine Mucus Few Urine HCG, Qual Positive 03/07/17 22:01 RBC 4.25 MCV 88.7 MCHC 34.5 RDW 12.5 MPV 8.4 Neutrophils % 93.9 H Lymphocytes % 4.1 L D Monocytes % 1.2 L Eosinophils % 0.3 D Basophils % 0.5 - RADIOLOGY Radiology Studies Ordered: Category Date Time Status US(SINGLE) [US] Stat Ultrasound 03/08/17 23:51 Taken - Medications Given in the ED: ED Medications Discontinued Medications Generic Name Dose Route Start Last Admin Trade Name Freq PRN Reason Stop Dose Admin Sodium Chloride 500 mls @ 500 mls/hr 03/07/17 22:01 03/07/17 22:47 Normal Saline - IV 03/07/17 23:00 500 mls/hr ASDIR STA Administration Metoclopramide HCl 10 mg 03/07/17 22:01 03/07/17 22:47 Reglan Injection - IVPUSH 03/07/17 22:02 10 mg ONCE ONE Administration Ondansetron HCl 4 mg 03/08/17 01:38 03/08/17 01:44 Zofran Injection IVPUSH 03/08/17 01:39 4 mg ONCE ONE Administration Medical Decision Making - Medical Decision Making 03/08/17 03:56 21F present with vomiting and epigastric pain. [place] , [place] [address] U/S: Estimated gestational age is 6w and one day. cardiac activity is 88bpm. bradycardia suggest abnormal position. Patient states that she wants an . 03/08/17 03:58 03/08/17 04:31 Tolerates PO. Is asleep in bed. Claims that her mother refuses to pick her up. *DC/Admit/Observation/Transfer Diagnosis at time of Disposition: Hyperemesis arising during - Discharge Dispostion Disposition: HOME - Referrals Referrals: Basil Gonzalez [Primary Care Provider] - - Patient Instructions Printed Discharge Instructions: Expand Your Contraceptive Options: Consider the IUD, Estrogen and Progestin (Oral Contraceptives)
[2017-03-08 05:33] VITALS: BP 129/72; PULSE 81; TEMP 98.4
[2017-03-08 09:04] LABS: URINE LEUK ESTERASE Negative (NEGATIVE)
== END 2017-03-08 06:00 | disposition home or self-care (01) ==
LOC: JER 21:17
PROC: 3E033GC Introduction of Other Therapeutic Substance into Peripheral Vein, Percutaneous Approach (ICD-10-PCS; principal; 2017-03-07)
DX: O26.891 Other specified pregnancy related conditions, first trimester (principal); O21.0 Mild hyperemesis gravidarum; Z3A.01 Less than 8 weeks gestation of pregnancy
CPT/HCPCS: 36415; 76801-TC; 80053; 81003; 81015; 84702; 84703; 85025; 99284-25

== ENCOUNTER 2017-09-23 01:22 | Emergency (ER) | payer OTHER, BC ==
[2017-09-23 02:42] VITALS: BMI 42.5
[2017-09-23] MEDS ORDERED: ACETAMINOPHEN 500 MG TABLET (FP) PO ONE (03:02)
[2017-09-23] MEDS ORDERED: guaiFENesin 200 MG/10 ML 10 ML UNIT-DOSE CUPS PO ONE (03:02)
[2017-09-23] MEDS ORDERED: guaiFENesin 200 MG/10 ML 10 ML UNIT-DOSE CUPS ONE (03:11)
[2017-09-23] MEDS ORDERED: ACETAMINOPHEN 325 MG TABLET (FP) ONE (03:11)
--- NOTE | 2017-09-23 03:11 | PDOC ---
History of Present Illness - General Chief Complaint: Cold Symptoms Stated Complaint: SOB Time Seen by Provider: 09/23/17 02:50 History Source: Patient Exam Limitations: No Limitations - History of Present Illness Initial Comments: 09/23/17 03:06 Patient is a 22F with no significant medical history here today complaining of 4 days of fever and cough. Patient states that after several days of coughing the patient developed chest and back pain worse with inspiration and cough. Patient takes no medications. Patient is not sure of when her last menstrual period was. Denies sick contacts. Denies leg swelling. Endorses shortness of breath. Denies nausea and vomiting. Past History - Past Medical History Allergies/Adverse Reactions: Allergies Allergy/AdvReac Type Severity Reaction Status Date / Time Shellfish Allergy Swelling Verified 09/23/17 02:42 PEANUTS Allergy Swelling Uncoded 09/23/17 02:42 Home Medications: Ambulatory Orders Ondansetron [Zuplenz] 4 mg PO PRN 03/07/17 Anemia: No Asthma: No Cancer: No Cardiac Disorders: No CVA: No COPD: No CHF: No Dementia: No Diabetes: No GI Disorders: No Disorders: No HTN: No Hypercholesterolemia: No Liver Disease: No Seizures: No Thyroid Disease: No - Surgical History Abdominal Surgery: No Appendectomy: No Cardiac Surgery: No Cholecystectomy: No Lung Surgery: No Neurologic Surgery: No Orthopedic Surgery: No - Immunization History Immunization Up to Date: Yes - Suicide/Smoking/Psychosocial Hx Smoking Status: Yes Smoking History: Never smoked Have you smoked in the past 12 months: No Number of Cigarettes Smoked Daily: 5 If you are a former smoker, when did you quit?: 2013 Information on smoking cessation initiated: No Hx Alcohol Use: No Drug/Substance Use Hx: No Substance Use Type: None Hx Substance Use Treatment: No Review of Systems - Review of Systems Comments:: 09/23/17 03:10 GENERAL/CONSTITUTIONAL: No fever or chills. No weakness. HEAD, EYES, EARS, NOSE AND THROAT: No change in vision. Positive for sore throat. CARDIOVASCULAR: Positive for chest pain and shortness of breath RESPIRATORY: Positive for cough. Negative for wheezing, or hemoptysis. GASTROINTESTINAL: No nausea, vomiting, diarrhea or constipation. GENITOURINARY: No dysuria, frequency, or change in urination. MUSCULOSKELETAL: No joint or muscle swelling or pain. No neck or back pain. SKIN: No rash NEUROLOGIC: No headache, vertigo, loss of consciousness, or change in strength/ sensation. HEMATOLOGIC/LYMPHATIC: No anemia, easy bleeding, or history of blood clots. ALLERGIC/IMMUNOLOGIC: No hives or skin allergy. *Physical Exam - Vital Signs Last Vital Signs Temp Pulse Resp BP Pulse Ox 100.3 F H 102 H 20 128/91 97 09/23/17 02:38 09/23/17 02:38 09/23/17 02:38 09/23/17 02:38 09/23/17 02:38 - Physical Exam Comments: 09/23/17 03:11 GENERAL: Awake, alert, and fully oriented, tired appearing, coughing HEAD: No signs of trauma, normocephalic, atraumatic EYES: PERRLA, EOMI, sclera anicteric, conjunctiva clear ENT: Auricles normal inspection, hearing grossly normal, nares patent, oropharynx clear without exudates. Moist mucosa NECK: Normal ROM, supple, no lymphadenopathy, JVD, or masses LUNGS: No distress, speaks full sentences, clear to auscultation bilaterally HEART: Regular rate and rhythm, normal S1 and S2, no murmurs, rubs or gallops, peripheral pulses normal and equal bilaterally. ABDOMEN: Soft, nontender, normoactive bowel sounds. No guarding, no rebound. No masses EXTREMITIES: Normal inspection, Normal range of motion, no edema. No clubbing or cyanosis. NEUROLOGICAL: Cranial nerves II through XII grossly intact. Normal speech, normal gait, no focal sensorimotor deficits SKIN: Warm, Dry, normal turgor, no rashes or lesions noted. ED Treatment Course - RADIOLOGY Radiology Studies Ordered: Category Date Time Status CHEST PA & LAT [RAD] Stat Radiology 09/23/17 03:01 Ordered Medical Decision Making - Medical Decision Making 09/23/17 03:11 Patient is a 22F with cough and fever. Chest pain reproducible, do not suspect ACS. PERC negative. Will workup possible pneumonia with upreg, cxr. Will treat with tylenol and robitussin. 09/23/17 05:19 CXR shows no infiltrate, no acute cardiopulmonary process. Temp now 98.0, HR 82. Patient states that she feels improved after medication. Will discharge home with instructions to take motrin and tylenol for fever and aches. Patient has PCP follow up. *DC/Admit/Observation/Transfer Diagnosis at time of Disposition: Viral syndrome - Discharge Dispostion Disposition: HOME Condition at time of disposition: Good Decision to Admit order: No - Referrals Referrals: Basil Gonzalez [Primary Care Provider] - - Patient Instructions Printed Discharge Instructions: DI for Viral Upper Respiratory Infection -- Adult Additional Instructions: You were seen today in the ED and found to have a viral upper respiratory infection. Please take tylenol 650mg up to 4 times per day and ibuprofen 400mg up to 3 times per day for your fever and body aches. Please follow up with your primary care physician in the next week. Please return if you have any new, worsening or concerning symptoms. - Post Discharge Activity Forms/Work/School Notes: Back to Work
--- NOTE | 2017-09-23 03:12 | PDOC ---
Attending Attestation - HPI HPI: 09/23/17 04:25 The patient is a 22 year old female with no significant PMH who presents to the emergency department with fever and cough beginning approximately 4 days. She also notes developing chest pain and back pain with associated shortness of breath recently secondary to her persistent coughing, which is aggravated by deep inspiration and cough. The patient denies recent travel or sick contacts. Allergies: NKDA PCP: Dr. Gonzalez <Marques Todd - Last Filed: 09/23/17 04:25> - Resident Resident Name: Kory Taylor - ED Attending Attestation I have performed the following: I have examined & evaluated the patient, The case was reviewed & discussed with the resident, I agree w/resident's findings & plan, Exceptions are as noted - Physicial Exam PE: 09/23/17 05:30 *Physical Exam General Appearance: Yes: Appropriately Dressed. No: Apparent Distress, Intoxicated HEENT: positive: EOMI, DENISE, Normal ENT Inspection, Normal Voice, TMs Normal, Pharynx Normal. negative: Pale Conjunctivae, Photophobia, Scleral Icterus (R), Scleral Icterus (L) Neck: positive: Trachea midline, Normal Thyroid, Supple. negative: Tender, Rigid, Carotid bruit, Stridor, Lymphadenopathy (R), Lymphadenopathy (L), Thyromegaly Respiratory/Chest: positive: Lungs Clear, Normal Breath Sounds. negative: Chest Tender, Respiratory Distress, Accessory Muscle Use, Labored Respiration, RES, Crackles, Rales, Rhonchi, Stridor, Wheezing, Dullness Cardiovascular: positive: Regular Rhythm, Regular Rate, S1, S2. negative: Edema , JVD, Murmur, Bradycardia, Tachycardia Vascular Pulses: Dorsalis-Pedis (R): 2+, Doralis-Pedis (L): 2+ Gastrointestinal/Abdominal: positive: Normal Bowel Sounds, Flat, Soft. negative : Tender, Organomegaly, Pulsatile Mass, Increased Bowel Sounds, Decreased BS, Distended, Guarding, Rebound, Hernia, Hepatomegaly, Spleenomegaly Lymphatic: negative: Adenopathy, Tenderness Musculoskeletal: positive: Normal Inspection. negative: CVA Tenderness, Decreased Range of Motion Extremity: positive: Normal Capillary Refill, Normal Inspection, Normal Range of Motion, Pelvis Stable. negative: Tender, Pedal Edema, Swelling, Erythema Integumentary: positive: Normal Color, Dry, Warm. negative: Cyanotic, Erythema , Jaundice, Rash Neurologic: positive: authorization nurse II-XII NML intact, Fully Oriented, Alert, Normal Mood/ Affect, Motor Strength 5/5. negative: EOM Palsy, Facial Droop, Sensory Deficit - Medical Decision Making 09/23/17 05:30 Pt treated and released <José Miguel Elias - Last Filed: 09/23/17 05:30>
[2017-09-23 05:34] VITALS: BP 121/86; PULSE 81; TEMP 98.1
== END 2017-09-23 05:34 | disposition home or self-care (01) ==
LOC: JER 01:22
DX: B34.9 Viral infection, unspecified (principal)
CPT/HCPCS: 71046-TC-FY; 84703; 99282-25

== ENCOUNTER 2018-05-11 02:33 | Emergency (ER) | payer OTHER, BC ==
--- NOTE | 2018-05-11 02:45 | PDOC ---
History of Present Illness - General Chief Complaint: Nausea/Vomiting Stated Complaint: VOMITING,ABDOMINAL PAIN, Time Seen by Provider: 05/11/18 02:45 History Source: Patient - History of Present Illness Initial Comments: 05/11/18 03:20 23-year-old female complaining of epigastric discomfort, nausea, vomiting for the last 2 days. Unable to tolerate anything by mouth denies diarrhea reports having 1 "sludgy "bowel movement yesterday. Patient reports eating food from the deli 2 days ago. Mother who is also at bedside reports eating the same thing had diarrhea and abdominal discomfort. Mother symptoms has resolved. Denies fever,'s chills, urinary symptoms, chest pain. Patient reports that yesterday she had bilateral lower extremity Cramping. Denies cramping symptoms today. No pmHx/ pSHX Past History - Past Medical History Allergies/Adverse Reactions: Allergies Allergy/AdvReac Type Severity Reaction Status Date / Time Shellfish Allergy Swelling Verified 05/11/18 02:47 PEANUTS Allergy Swelling Uncoded 05/11/18 02:47 Home Medications: Ambulatory Orders Ondansetron [Zuplenz] 4 mg PO PRN 03/07/17 Famotidine [Pepcid] 20 mg PO DAILY #20 tablet 05/11/18 Ondansetron HCl [Zofran] 4 mg PO TID PRN #6 tablet 05/11/18 Anemia: No Asthma: No Cancer: No Cardiac Disorders: No CVA: No COPD: No CHF: No Dementia: No Diabetes: No GI Disorders: No Disorders: No HTN: No Hypercholesterolemia: No Liver Disease: No Seizures: No Thyroid Disease: No - Surgical History Abdominal Surgery: No Appendectomy: No Cardiac Surgery: No Cholecystectomy: No Lung Surgery: No Neurologic Surgery: No Orthopedic Surgery: No - Immunization History Immunization Up to Date: Yes - Suicide/Smoking/Psychosocial Hx Smoking Status: Yes Smoking History: Never smoked Have you smoked in the past 12 months: No Number of Cigarettes Smoked Daily: 5 If you are a former smoker, when did you quit?: 2013 Hx Alcohol Use: No Drug/Substance Use Hx: No Substance Use Type: None Hx Substance Use Treatment: No Review of Systems - Review of Systems Able to Perform ROS?: Yes Is the patient limited Tristanian proficient: No Constitutional: No: Symptoms Reported, See HPI, Chills, Diaphoresis, Fever, Loss of Appetite, Malaise, Night Sweats, Weakness, Weight Stable, Unintentional Wgt. Loss, Unexplained wgt Loss, Other Respiratory: No: Symptoms reported, See HPI, Cough, Orthopnea, Shortness of Breath, SOB with Exertion, SOB at Rest, Stridor, Wheezing, Productive cough, Hemoptysis, Other ABD/GI: Yes: Nausea, Vomiting, Abdominal cramping. No: Symptoms Reported, See HPI, Abdominal Distended, Abd. Pain w/ defecation, Blood Streaked Bowels, Constipated, Diarrhea, Difficulty Swallowing, Poor Appetite, Poor Fluid Intake, Rectal Bleeding, Indigestion, Tarry Stools, Other : No: Symptoms Reported, See HPI, Burning, Dysuria, Discharge, Frequency, Flank Pain, Hematuria, Incontinence, Pain, Urgency, Testicular Mass, Testicular Swelling, Lesions, Testicular Pain, Other Musculoskeletal: No: Symptoms Reported, See HPI, Back Pain, Gout, Joint Pain, Joint Swelling, Muscle Pain, Muscle Weakness, Neck Pain, Joint Stiffness, Other Integumentary: No: Symptoms Reported, See HPI, Bruising, Change in Color, Change in Hair/Nails, Dryness, Erythema, Flushing, Lesions, Lumps, Pallor, Pruritus, Rash, Sweating, Other Neurological: No: Symptoms reported, See HPI, Headache, Numbness, Paresthesia, Pre-Existing Deficit, Seizure, Tingling, Tremors, Weakness, Unsteady Gait, Ataxia, Dizziness, Other *Physical Exam - Vital Signs 05/11/18 03:37 Last Vital Signs Temp Pulse Resp BP Pulse Ox 98.4 F 97 H 20 136/90 98 05/11/18 02:44 05/11/18 02:44 05/11/18 02:44 05/11/18 02:44 05/11/18 02:44 - Physical Exam General Appearance: Yes: Mild Distress Respiratory/Chest: positive: Lungs Clear, Normal Breath Sounds Cardiovascular: positive: Regular Rhythm, Regular Rate Gastrointestinal/Abdominal: positive: Normal Bowel Sounds, Soft. negative: Tender (no abdominal tenderness) Extremity: positive: Normal Capillary Refill, Normal Inspection, Normal Range of Motion Integumentary: positive: Normal Color, Dry, Warm Neurologic: positive: Fully Oriented, Alert ED Treatment Course - LABORATORY CBC & Chemistry Diagram: 05/11/18 03:10 05/11/18 03:10 Progress Note - Progress Note Progress Note: A: nausea/ vomiting; gastroenteritis? P: labs Medical Decision Making - Medical Decision Making 05/11/18 05:02 no abdominal pain. + bowel sounds. reports feeling better. will Po challenge 05/11/18 06:29 patient now tolerated 2 cups of water. reports feeling better . will d/c home to continue PO hydration at home, *DC/Admit/Observation/Transfer Diagnosis at time of Disposition: Acute gastroenteritis - Discharge Dispostion Disposition: HOME - Prescriptions Prescriptions: Famotidine [Pepcid] 20 mg PO DAILY #20 tablet Ondansetron HCl [Zofran] 4 mg PO TID PRN #6 tablet PRN Reason: vomiting - Referrals Referrals: Basil Gnozalez [Primary Care Provider] - - Patient Instructions Printed Discharge Instructions: DI for Vomiting -- Adult Additional Instructions: Drink plenty of fluids, You may drink Gatorade. Start a brat diet (bananas, rice, apples, toast) Follow up with you doctor as soon as possible Return to the ER if you're unable to keep anything down by mouth. Or for any worsening symptoms. - Post Discharge Activity Forms/Work/School Notes: Back to Work
[2018-05-11] MEDS ORDERED: SODIUM CHLORIDE 1,000 ML IV STA (02:50)
[2018-05-11] MEDS ORDERED: FAMOTIDINE 20 MG/50 ML IVPB 20 MG/50 ML MG IVPB ONE ×2 (03:00→03:21)
[2018-05-11] MEDS ORDERED: ONDANSETRON 4 MG/2 ML VIAL IVPUSH ONE (03:00)
--- NOTE | 2018-05-11 03:10 | PDOC ---
*Physical Exam - Vital Signs Last Vital Signs Temp Pulse Resp BP Pulse Ox 98.4 F 97 H 20 136/90 98 05/11/18 02:44 05/11/18 02:44 05/11/18 02:44 05/11/18 02:44 05/11/18 02:44 ED Treatment Course - LABORATORY CBC & Chemistry Diagram: 05/11/18 03:10 05/11/18 03:10 Medical Decision Making - Medical Decision Making 05/11/18 03:44 HX, Pe consistent with likely AGE agree with assessment and plan f/u exam after tx 05/11/18 07:04 symptomatic improvement after tx dc *DC/Admit/Observation/Transfer Diagnosis at time of Disposition: Acute gastroenteritis - Discharge Dispostion Disposition: HOME Condition at time of disposition: Stable - Prescriptions Prescriptions: Famotidine [Pepcid] 20 mg PO DAILY #20 tablet Ondansetron HCl [Zofran] 4 mg PO TID PRN #6 tablet PRN Reason: vomiting - Referrals Referrals: Basil Gonzalez [Primary Care Provider] - - Patient Instructions Printed Discharge Instructions: DI for Vomiting -- Adult Additional Instructions: Drink plenty of fluids, You may drink Gatorade. Start a brat diet (bananas, rice, apples, toast) Follow up with you doctor as soon as possible Return to the ER if you're unable to keep anything down by mouth. Or for any worsening symptoms. - Post Discharge Activity Forms/Work/School Notes: Back to Work
[2018-05-11 03:21] LABS: BASO % 0.7 % (0-2.0); EOS % 0.3 % (0-4.5); HEMATOCRIT 40.5 % (32.4-45.2); HEMOGLOBIN 14.5 GM/dL (10.7-15.3); MCH 31.8 pg (25.7-33.7); MCHC 35.8 g/dl (32.0-36.0); MEAN CELL VOLUME 88.9 fl (80-96); MEAN PLT VOLUME 8.3 fl (7.5-11.1); MONO % 7.1 % (3.8-10.2); NEUT % 74.9 % (42.8-82.8); PLATELET COUNT 339 K/MM3 (134-434); RBC 4.56 M/mm3 (3.60-5.2); RDW 12.7 % (11.6-15.6); WHITE BLOOD COUNT 8.4 K/mm3 (4.0-10.0)
[2018-05-11] MEDS ORDERED: ONDANSETRON 4 MG/2 ML VIAL ONE ×2 (03:21→05:31)
[2018-05-11 03:30] VITALS: BMI 41.5
[2018-05-11 03:42] LABS: ALBUMIN 4.1 g/dl (3.4-5.0); ALK PHOS 80 U/L (45-117); ANION GAP 9 MMOL/L (8-16); BILIRUBIN,TOTAL 0.6 mg/dL (0.2-1); BLOOD UREA NITROGEN 11 mg/dL (7-18); CALCIUM 8.9 mg/dL (8.5-10.1); CHLORIDE 102 mmol/L (98-107); CO2 25 mmol/L (21-32); CREATININE 0.8 mg/dL (0.55-1.3); GLUCOSE,RANDOM 126 mg/dL (74-106); LIPASE 90 U/L (73-393); POTASSIUM 3.5 mmol/L (3.5-5.1); SGOT/AST 22 U/L (15-37); SGPT/ALT 37 U/L (13-61); SODIUM 136 mmol/L (136-145); TOT PROT 8.1 g/dl (6.4-8.2)
[2018-05-11] MEDS ORDERED: SODIUM CHLORIDE 1,000 ML IV SCH (03:45)
[2018-05-11] MEDS ORDERED: METOCLOPRAMIDE HCL INJECTION 10 MG/2 ML VIAL IVPB ONE (04:38)
[2018-05-11] MEDS ORDERED: METOCLOPRAMIDE HCL INJECTION 10 MG/2 ML VIAL ONE (04:39)
[2018-05-11 05:23] LABS: URINE APPEARANCE CLEAR; URINE BILIRUBIN NEGATIVE (<2.0 mg/dL); URINE COLOR AMBER; URINE GLUCOSE (UA) NEGATIVE (NEGATIVE); URINE KETONE 1+ (NEGATIVE); URINE LEUK ESTERASE NEGATIVE (NEGATIVE); URINE NITRITE NEGATIVE (NEGATIVE); URINE PROTEIN 2+ (NEGATIVE)
[2018-05-11] MEDS ORDERED: ONDANSETRON 4 MG/2 ML VIAL IVPB ONE (05:26)
[2018-05-11 05:27] LABS: EPI CELLS RARE /HPF (FEW); URINE BACTERIA RARE /hpf (NONE SEEN); URINE MUCUS MANY
[2018-05-11] MEDS ORDERED: SUCRALFATE 1 GM/10 ML UNIT DOSE CUPS PO ONE (05:30)
[2018-05-11] MEDS ORDERED: SUCRALFATE 1 GM TABLET (FP) ONE (05:31)
[2018-05-11 07:01] VITALS: BP 128/82; PULSE 83; TEMP 98.3
--- NOTE | 2018-05-11 12:14 | EKG ---
Test Reason : Blood Pressure : / mmHG Vent. Rate : 071 BPM Atrial Rate : 071 BPM P-R Int : 162 ms QRS Dur : 084 ms QT Int : 418 ms P-R-T Axes : 058 072 052 degrees QTc Int : 454 ms NORMAL SINUS RHYTHM WITH SINUS ARRHYTHMIA SEPTAL INFARCT , AGE UNDETERMINED ABNORMAL ECG NO PREVIOUS ECGS AVAILABLE Confirmed by JEROD FRANCOIS MD ([id number]) on 05/11/2018 12:14:20 PM Referred By: Confirmed By:JEROD FRANCOIS MD
== END 2018-05-11 07:01 | disposition home or self-care (01) ==
LOC: JER 02:33
PROC: 3E0337Z Introduction of Electrolytic and Water Balance Substance into Peripheral Vein, Percutaneous Approach (ICD-10-PCS; principal; 2018-05-11)
PROC: 3E033GC Introduction of Other Therapeutic Substance into Peripheral Vein, Percutaneous Approach (ICD-10-PCS; 2018-05-11)
PROC: 3E033GC Introduction of Other Therapeutic Substance into Peripheral Vein, Percutaneous Approach (ICD-10-PCS; 2018-05-11)
PROC: 3E033GC Introduction of Other Therapeutic Substance into Peripheral Vein, Percutaneous Approach (ICD-10-PCS; 2018-05-11)
DX: K52.9 Noninfective gastroenteritis and colitis, unspecified (principal)
CPT/HCPCS: 36415; 80053; 81003; 81015; 83690; 84703; 85025; 93005; 93010; 99282-25; J7030

== ENCOUNTER 2018-05-12 02:58 | Emergency (ER) | payer OTHER, BC ==
--- NOTE | 2018-05-12 03:32 | PDOC ---
Attending Attestation - Resident Resident Name: EmelyradhaMontse - ED Attending Attestation I have performed the following: I have examined & evaluated the patient, The case was reviewed & discussed with the resident, I agree w/resident's findings & plan, Exceptions are as noted - HPI HPI: 05/12/18 03:31 23y F with no pmhx presents with complaint of vomiting, abd pain. family mbmers with similar symtoms, but theirs resoled after approx 2 days. Patient recently seen in our ED with labs and syptomatic treatment with improvement. pt notes her vomitng started again after she got home and tried to eat. denies any fever/chills. abd pain is burning in nature in epigastrium without radiation denies cp, sob, bpr, melena, one epsiode of soft stool a few days ago - Physicial Exam PE: 05/12/18 04:31 GENERAL: The patient is awake, alert, and fully oriented, Nontoxic - in no acute distress. HEAD: Normocephalic, atraumatic. EYES: extraocular movements intact, sclera anicteric, conjunctiva clear. ENT: Normal voice, Moist mucous membranes. NECK: Normal range of motion, supple LUNGS: Breath sounds equal, clear to auscultation bilaterally. No wheezes, no rhonchi, no rales. HEART: Regular rate and rhythm, normal S1 and S2 without murmur, rub or gallop. ABDOMEN: Soft, nontender, No guarding, no rebound. No CVA tenderness EXTREMITIES: Normal range of motion, No clubbing or cyanosis. No cords, erythema , or tenderness. NEUROLOGICAL: No facial assymetry, Normal speech, PSYCH: Normal mood, normal affect. SKIN: Warm, Dry, normal turgor, - Medical Decision Making 05/12/18 04:31 Suspect gastritis/enteritis, will obtain blood work will give fluids, Zofran for nausea abd soft nontender - do not feel imaging necessary at this point will reasses 05/12/18 07:57 pt feeling improved tolerating oral intake anticipate dc with pmd fu return precautions were discussed
[2018-05-12] MEDS ORDERED: FAMOTIDINE 20 MG/50 ML IVPB 20 MG/50 ML MG IVPB ONE ×2 (03:34→04:24)
[2018-05-12] MEDS ORDERED: SODIUM CHLORIDE 1,000 ML IV STA (03:34)
[2018-05-12] MEDS ORDERED: MAG HYDROX/AL HYDROX/SIMETH -MYLANTA- ORAL SUSPENSION PO ONE (03:34)
[2018-05-12] MEDS ORDERED: ONDANSETRON 4 MG/2 ML VIAL IVPUSH ONE (03:34)
[2018-05-12 03:38] VITALS: BP 134/77; PULSE 80; TEMP 97.7; BMI 41.5
--- NOTE | 2018-05-12 03:42 | PDOC ---
History of Present Illness - General Chief Complaint: Nausea/Vomiting Stated Complaint: VOMITING Time Seen by Provider: 05/12/18 03:16 History Source: Patient Exam Limitations: No Limitations - History of Present Illness Initial Comments: 05/12/18 03:37 Patient is a 23 year old female with no significant PMHx who presents here for a 4 day history of nausea, vomiting, and abdominal discomfort. Patient was seen here yesterday for the same issue and was sent home with Pepcid and Zofran. Patient states on shahid her family had dinner and everyone afterwards was sick with nausea and vomiting. However, she states they all felt better after two days but her nausea and vomiting persisted, which prompted her initial hospital visit yesterday. Patient reports after being discharged yesterday, the vomiting increased and was unable to tolerate oral intake. States she had soup this evening but was unable to tolerate more than three bites without feeling nauseated. Patient otherwise denies any fever, chills, chest pain, palpitations, shortness of breath, diarrhea, constipation, hematuria, hematochezia, hematemesis, hemoptysis, dizziness, acute vision changes, loss of consciousness PMHx: Denies PSHx: I&D for MRSA thigh abscess Social Hx: Smoking: none Alcohol: occasional social Drugs: none Family Hx: Denies Past History - Past Medical History Allergies/Adverse Reactions: Allergies Allergy/AdvReac Type Severity Reaction Status Date / Time Shellfish Allergy Swelling Verified 05/12/18 03:39 PEANUTS Allergy Swelling Uncoded 05/12/18 03:39 Home Medications: Ambulatory Orders Ondansetron [Zuplenz] 4 mg PO PRN 03/07/17 Famotidine [Pepcid] 20 mg PO DAILY #20 tablet 05/11/18 Ondansetron HCl [Zofran] 4 mg PO TID PRN #6 tablet 05/11/18 Anemia: No Asthma: No Cancer: No Cardiac Disorders: No CVA: No COPD: No CHF: No Dementia: No Diabetes: No GI Disorders: No Disorders: No HTN: No Hypercholesterolemia: No Liver Disease: No Seizures: No Thyroid Disease: No - Surgical History Abdominal Surgery: No Appendectomy: No Cardiac Surgery: No Cholecystectomy: No Lung Surgery: No Neurologic Surgery: No Orthopedic Surgery: No - Immunization History Immunization Up to Date: Yes - Suicide/Smoking/Psychosocial Hx Smoking Status: Yes Smoking History: Never smoked Have you smoked in the past 12 months: No Number of Cigarettes Smoked Daily: 5 If you are a former smoker, when did you quit?: 2013 Hx Alcohol Use: No Drug/Substance Use Hx: No Substance Use Type: None Hx Substance Use Treatment: No Review of Systems - Review of Systems Constitutional: No: Chills, Diaphoresis, Fever, Night Sweats HEENTM: No: Nose Congestion, Tinnitus, Throat Pain Respiratory: No: Cough, Orthopnea, Shortness of Breath, SOB with Exertion, Wheezing, Productive cough Cardiac (ROS): No: Chest Pain, Edema, Lightheadedness, Palpitations, Syncope, Chest Tightness ABD/GI: Yes: Nausea, Poor Fluid Intake, Vomiting, Indigestion. No: Abdominal Distended, Constipated, Diarrhea, Abdominal cramping : No: Burning, Dysuria, Discharge, Frequency, Flank Pain Musculoskeletal: No: Back Pain, Joint Pain, Neck Pain Integumentary: No: Bruising, Erythema, Flushing Neurological: No: Headache, Numbness, Seizure, Tremors Endocrine: No: Increased Thirst, Increased Urine *Physical Exam - Physical Exam General Appearance: Yes: Other (Awake, alert, oriented x3, in no acute distress ) HEENT: positive: EOMI, DENISE, Normal ENT Inspection, Pharynx Normal. negative: Tonsillar Exudate, Tonsillar Erythema, Sinus Tenderness Neck: negative: Decreased range of motion, Lymphadenopathy (R), Lymphadenopathy (L) Respiratory/Chest: positive: Lungs Clear, Normal Breath Sounds. negative: Respiratory Distress, Crackles, Rales, Rhonchi Cardiovascular: positive: Regular Rhythm, Regular Rate, S1, S2. negative: Edema , JVD Gastrointestinal/Abdominal: positive: Other (Soft, nontender, nondistended, normoactive bowel sounds, no rebound tenderness or guarding, no organomegaly) Musculoskeletal: positive: Normal Inspection. negative: CVA Tenderness, CVA Tenderness (R), CVA Tenderness (L) Extremity: positive: Normal Capillary Refill, Normal Inspection, Normal Range of Motion. negative: Calf Tenderness, Erythema Integumentary: positive: Normal Color, Dry, Warm Neurologic: positive: human resources operations coordinator II-XII NML intact, Fully Oriented, Alert, Normal Mood/ Affect, Normal Response, Motor Strength 5/5 ED Treatment Course - LABORATORY CBC & Chemistry Diagram: 05/12/18 04:00 05/12/18 04:30 Medical Decision Making - Medical Decision Making 05/12/18 03:50 Patient is a 23 year old female with no significant PMHx who presented for worsening nausea, persistent vomiting, and abdominal pain for the past 4 days. Differential diagnosis includes but not limited to gastroenteritis, gastritis, , PUD, GERD. -Repeat CBC and CMP -1L IV NS -Pepcid, Zofran, and Mylanta 05/12/18 05:59 -Patient labs unremarkable -Reports feeling better with no episodes of vomiting -Will PO challenge and then discharge 05/12/18 06:50 -Patient tolerated two cups of water. Still reports some nausea but no vomiting -Will discharge home *DC/Admit/Observation/Transfer Diagnosis at time of Disposition: Gastroenteritis - Discharge Dispostion Disposition: HOME Condition at time of disposition: Stable Decision to Admit order: No - Referrals Referrals: Basil Gonzalez [Primary Care Provider] - - Patient Instructions Additional Instructions: -You were seen here for a possibly stomach infection. Your blood work here today was unremarkable. -You will need to continue to stay hydrated with lots of PO drinks such as water. -I would slowly introduce foods to your diet and start with the brat diet ( bananas, rice, apples, toast). -Continue taking your over the counter medications, Zofran and Pecid,, given to you 05/11 -Follow up with your primary care doctor as soon as possible -Return to the emergency department for any worsening symptoms. - Post Discharge Activity
[2018-05-12 04:17] LABS: BASO % 0.6 % (0-2.0); EOS % 0.4 % (0-4.5); HEMATOCRIT 39.8 % (32.4-45.2); HEMOGLOBIN 14.1 GM/dL (10.7-15.3); LYMPH % 20.9 % (8-40); MCH 31.6 pg (25.7-33.7); MCHC 35.5 g/dl (32.0-36.0); MONO % 8.9 % (3.8-10.2); NEUT % 69.2 % (42.8-82.8); PLATELET COUNT 332 K/MM3 (134-434); RBC 4.47 M/mm3 (3.60-5.2); RDW 12.6 % (11.6-15.6); WHITE BLOOD COUNT 8.5 K/mm3 (4.0-10.0)
[2018-05-12] MEDS ORDERED: MAG HYDROX/AL HYDROX/SIMETH 30 ML UNIT-DOSE CUP ONE (04:23)
[2018-05-12] MEDS ORDERED: ONDANSETRON 4 MG/2 ML VIAL ONE (04:24)
[2018-05-12 05:58] LABS: ALBUMIN 4.1 g/dl (3.4-5.0); ALK PHOS 74 U/L (45-117); ANION GAP 9 MMOL/L (8-16); BILIRUBIN,TOTAL 0.6 mg/dL (0.2-1); BLOOD UREA NITROGEN 8 mg/dL (7-18); CALCIUM 8.9 mg/dL (8.5-10.1); CHLORIDE 104 mmol/L (98-107); CO2 24 mmol/L (21-32); CREATININE 0.8 mg/dL (0.55-1.3); GLUCOSE,RANDOM 117 mg/dL (74-106); POTASSIUM 3.6 mmol/L (3.5-5.1); SGOT/AST 25 U/L (15-37); SGPT/ALT 33 U/L (13-61); SODIUM 137 mmol/L (136-145)
[2018-05-12] MEDS ORDERED: PROMETHAZINE HCL 25 MG/1 ML VIAL IVPUSH ONE (06:55)
[2018-05-12] MEDS ORDERED: METOCLOPRAMIDE HCL 10 MG TABLET (FP) PO ONE (07:05)
== END 2018-05-12 07:08 | disposition home or self-care (01) ==
LOC: JER 02:58
PROC: 3E0337Z Introduction of Electrolytic and Water Balance Substance into Peripheral Vein, Percutaneous Approach (ICD-10-PCS; principal; 2018-05-12)
PROC: 3E033GC Introduction of Other Therapeutic Substance into Peripheral Vein, Percutaneous Approach (ICD-10-PCS; 2018-05-12)
PROC: 3E033GC Introduction of Other Therapeutic Substance into Peripheral Vein, Percutaneous Approach (ICD-10-PCS; 2018-05-12)
PROC: 3E033GC Introduction of Other Therapeutic Substance into Peripheral Vein, Percutaneous Approach (ICD-10-PCS; 2018-05-12)
DX: K52.9 Noninfective gastroenteritis and colitis, unspecified (principal)
CPT/HCPCS: 36415; 80053; 83690; 85025; 99282-25; J7030

== ENCOUNTER 2019-03-04 11:10 | Emergency (ER) | payer OTHER ==
[2019-03-04 11:17] VITALS: BMI 43.8
--- NOTE | 2019-03-04 11:33 | PDOC ---
Attending Attestation - Resident Resident Name: Ezequiel Alexander - HPI HPI: 03/04/19 12:53 Pt presents to the ED complaining of L sided pain and facial swelling that began yesterday. Denies trauma, fever, nausea and vomiting. State that pain is worse with lying down. Complains of runny nose, but denies eye or tooth pain. Denies prior history of similar pain. - Physicial Exam PE: 03/04/19 13:01 Agree with resident exam. Pt is alert and oriented and in no acute distress. + 2 x 2 area of slight induration and exquisite tenderness in the L cheek. + warmth. No dental carries, or signs of dental abscess. No infraorbital tenderness. - Medical Decision Making 03/04/19 13:17 Pt presents to the ED with facial cellulitis vs abscess. Low suspicion for sinusitis, dental abscess or periorbital cellulitis. Very small and deep fluid collection seen on bedside US. Will treat with PO antibiotics, arrange plastics follow up. Will ask patient to return to the ED within two days for cellulitis check if she is unable to obtain follow up. 03/04/19 13:19
--- NOTE | 2019-03-04 12:09 | PDOC ---
History of Present Illness - General Chief Complaint: Edema Stated Complaint: FACE SWOLLEN Time Seen by Provider: 03/04/19 11:31 History Source: Patient Exam Limitations: No Limitations - History of Present Illness Initial Comments: 03/04/19 18:44 HPI: 23F no PMH c/o left sided cheek pain and swelling since she woke up. [place] slight numbness in the area last PM. Took an aleeve, didn't help. No difficulty breathing or swallowing. Endorses 1 week of recent illness w/ productive cough, runny nose, and fevers/chills. Denies recent dental procedures, changes in vision or hearing, eye pain, ear pain, and/or sick contacts. Was given 1 dose of amoxicillin by mother. Past History - Past Medical History Allergies/Adverse Reactions: Allergies Allergy/AdvReac Type Severity Reaction Status Date / Time Shellfish Allergy Swelling Verified 03/04/19 11:17 PEANUTS Allergy Swelling Uncoded 03/04/19 11:17 Home Medications: Ambulatory Orders Amoxicillin/Potassium Clav [Augmentin 875-125 Tablet] 1 each PO BID #19 tablet 03/04/19 Anemia: No Asthma: No Cancer: No Cardiac Disorders: No CVA: No COPD: No CHF: No Dementia: No Diabetes: No GI Disorders: No Disorders: No HTN: No Hypercholesterolemia: No Liver Disease: No Seizures: No Thyroid Disease: No - Surgical History Abdominal Surgery: No Appendectomy: No Cardiac Surgery: No Cholecystectomy: No Lung Surgery: No Neurologic Surgery: No Orthopedic Surgery: No - Immunization History Immunization Up to Date: Yes - Psycho Social/Smoking Cessation Hx Smoking Status: Yes Smoking History: Never smoked Have you smoked in the past 12 months: No Number of Cigarettes Smoked Daily: 5 If you are a former smoker, when did you quit?: 2013 Hx Alcohol Use: No Drug/Substance Use Hx: No Substance Use Type: None Hx Substance Use Treatment: No Review of Systems - Review of Systems Able to Perform ROS?: Yes Comments:: 03/04/19 18:45 ROS: CONSTITUTIONAL: Endorses F / C HEENT: Endorses rhinorrhea. Denies changes in vision / hearing, diplopia, blurry vision, eye pain, ear pain. Denies sore throat RESP: Endorses productive cough x 1 week. Denies SOB CARD: Denies chest pain GI: Endorses decreased appetite. Denies N / V / D, abdominal pain : Denies dysuria SKIN: Endorses pain and swelling at the left cheek Is the patient limited [place]ian proficient: No *Physical Exam - Vital Signs Last Vital Signs Temp Pulse Resp BP Pulse Ox 98.1 F 100 H 18 133/82 99 03/04/19 11:15 03/04/19 11:15 03/04/19 11:15 03/04/19 11:15 03/04/19 11:15 - Physical Exam Comments: 03/04/19 18:45 PE: VS reviewed GEN: NAD AAOx3 HEENT: NC/AT, EOMI, PERRLA. EAC, TM clear b/l. Erythematous nares. Swelling of the left cheek, exquisitely TTP. Moist mucous membranes, no discharge or bleeding. Normal voice. CV: S1/S2, RRR, no m/r/g LUNG: CTAB, no wheezes, crackles, rales, rhonchi. GI: obese, soft, ndnt, +BS, no guarding, no rebound EXTREMITIES: No LE edema. No obvious deformities of all extremities SKIN: warm, dry, normal turgor PSYCH: normal mood and affect NEURO: Moving all extremities well. Medical Decision Making - Medical Decision Making 03/04/19 11:47 MDM: 23F w/ left cheek pain and swelling x1 day in setting of recent f/c/ productive.cough/rhinorrhea. DDx - abscess, cellulitis, sinusitis - percocet - ultrasound 03/04/19 13:27 - Bedside US shows fluid pocket on left side not on right - PPX coverage w/ Augmentin 10 days w/ first dose here - Will dc home w/ plastic surgery f/u or ED wound check in 2 days and return precautions Discharge - Discharge Information Problems reviewed: Yes Clinical Impression/Diagnosis: Cellulitis Qualifiers: Site of cellulitis: face Qualified Code(s): L03.211 - Cellulitis of face Condition: Stable Disposition: HOME - Admission No - Additional Discharge Information Prescriptions: Amoxicillin/Potassium Clav [Augmentin 875-125 Tablet] 1 each PO BID #19 tablet - Follow up/Referral Referrals: Basil Gonzalez [Primary Care Provider] - Nando Jinag MD [Staff Physician] - - Patient Discharge Instructions Patient Printed Discharge Instructions: DI for Cellulitis -- Adult Additional Instructions: You were seen and treated in the Emergency Department. Apply warm compresses to the affected area. You may take tylenol or motrin as directed on bottle for pain We have sent antibiotics to your pharmacy. Please pick it up and take as directed. You received your first dose in the ED. Take 1 tablet every 12 hours for 10 days. FINISH THE ANTIBIOTICS. Follow up with Plastic Surgery in the next 1 day regarding this ED visit. We made you a referral to Dr. Jiang. You can call Dr. Jiang on the number provided to schedule an appointment. If you aren't able to see Dr. Jiang tomorrow (03/05/19) RETURN TO THE ED in the 2 days (Tuesday03/06/19) for a wound check. IMMEDIATELY return to the ED if you experience any of the following: - the pain spreads - eye pain or changes in vision - spitting up, difficulty breathing or swallowing - high fever, change in mentation - ANYTHING that concerns you - Post Discharge Activity
[2019-03-04] MEDS ORDERED: AMOX TR/POT CLAV 875MG/125MG TABLETS (FP) PO ONE (13:22)
[2019-03-04] MEDS ORDERED: AMOX TR/POT CLAV 875MG/125MG TABLETS (FP) ONE (13:29)
[2019-03-04 15:12] VITALS: BP 118/73; PULSE 79; TEMP 98.3
== END 2019-03-04 15:12 | disposition home or self-care (01) ==
LOC: JER 11:10
DX: L03.211 Cellulitis of face (principal); Z91.013 Allergy to seafood; Z91.010 Allergy to peanuts
CPT/HCPCS: 99282-25

== ENCOUNTER 2019-03-05 10:33 | Emergency (ER) | payer OTHER ==
[2019-03-05 10:55] VITALS: BP 119/80; PULSE 64; TEMP 98.1; BMI 36.3
--- NOTE | 2019-03-05 11:27 | PDOC ---
History of Present Illness - General Chief Complaint: Revisit,Wound Recheck Stated Complaint: FACIAL PAIN Time Seen by Provider: 03/05/19 11:14 - History of Present Illness Initial Comments: 03/05/19 11:24 23-year-old female returns to the emergency room for left-sided facial pain. No fevers or systemic symptoms. She is on Augmentin for dental abscess Past History - Past Medical History Allergies/Adverse Reactions: Allergies Allergy/AdvReac Type Severity Reaction Status Date / Time Shellfish Allergy Swelling Verified 03/04/19 11:17 PEANUTS Allergy Swelling Uncoded 03/04/19 11:17 Home Medications: Ambulatory Orders Amoxicillin/Potassium Clav [Augmentin 875-125 Tablet] 1 each PO BID #19 tablet 03/04/19 Anemia: No Asthma: No Cancer: No Cardiac Disorders: No CVA: No COPD: No CHF: No Dementia: No Diabetes: No GI Disorders: No Disorders: No HTN: No Hypercholesterolemia: No Liver Disease: No Seizures: No Thyroid Disease: No - Surgical History Abdominal Surgery: No Appendectomy: No Cardiac Surgery: No Cholecystectomy: No Lung Surgery: No Neurologic Surgery: No Orthopedic Surgery: No - Immunization History Immunization Up to Date: Yes - Psycho Social/Smoking Cessation Hx Smoking Status: Yes Smoking History: Never smoked Have you smoked in the past 12 months: No Number of Cigarettes Smoked Daily: 5 If you are a former smoker, when did you quit?: 2013 Information on smoking cessation initiated: No Hx Alcohol Use: No Drug/Substance Use Hx: No Substance Use Type: None Hx Substance Use Treatment: No Review of Systems - Review of Systems Constitutional: No: Chills, Diaphoresis, Fever, Malaise, Night Sweats HEENTM: Yes: Dental Problems *Physical Exam - Vital Signs Last Vital Signs Temp Pulse Resp BP Pulse Ox 98.1 F 64 18 119/80 98 03/05/19 10:51 03/05/19 10:51 03/05/19 10:51 03/05/19 10:51 03/05/19 10:51 - Physical Exam Comments: 03/05/19 11:25 Left cheek skin color and temperature are normal. There is a palpable fluctuance on the left upper gum and bugle mucosa. This area is tender. There is no facial fluctuance erythema warmth induration or sensitivity. Medical Decision Making - Medical Decision Making 03/05/19 11:25 This is a dental abscess not facial cellulitis. Continue Augmentin patient instructed to follow-up with urgent care dental. Discharge - Discharge Information Problems reviewed: Yes Clinical Impression/Diagnosis: Dental abscess Condition: Stable Disposition: HOME - Admission No - Follow up/Referral Referrals: Urgent Care Dental [Outside] - Patient Discharge Instructions Additional Instructions: Continue with the antibiotics. Tylenol Motrin as directed for pain. Return to the emergency room for worsening symptoms. Without fail, please follow-up with urgent care dental today you do not need an appointment. - Post Discharge Activity
== END 2019-03-05 11:33 | disposition home or self-care (01) ==
LOC: JERFT 10:33
DX: K04.7 Periapical abscess without sinus (principal); Z91.010 Allergy to peanuts; Z91.013 Allergy to seafood
CPT/HCPCS: 99281-25

== ENCOUNTER 2021-01-17 17:22 | Emergency (ER) | payer SELFPAY ==
[2021-01-17 17:58] VITALS: BMI 46.2
[2021-01-17] MEDS ORDERED: ACETAMINOPHEN 1000 MG/100 ML VIAL (NON FORMULARY) IVPB ONE (18:12)
[2021-01-17] MEDS ORDERED: LACTATED RINGERS SOLUTION 1000 ML INFUS.BAG IV ONE (18:12)
[2021-01-17] MEDS ORDERED: ONDANSETRON 4 MG/2 ML VIAL IVPUSH ONE (18:12)
[2021-01-17] MEDS ORDERED: FAMOTIDINE 20 MG/50 ML IVPB 20 MG/50 ML MG IVPB ONE ×2 (18:12→18:17)
[2021-01-17] MEDS ORDERED: ACETAMINOPHEN INJECTION 100 ML IVPB ONE (18:17)
[2021-01-17] MEDS ORDERED: ONDANSETRON 4 MG/2 ML VIAL ONE (18:17)
[2021-01-17] MEDS ORDERED: LORazepam 2 MG/ML SDV VIAL IVPUSH ONE (18:24)
[2021-01-17 18:34] LABS: BASO % 0.7 % (0-2.0); HEMATOCRIT 37.1 % (32.4-45.2); HEMOGLOBIN 12.7 GM/dL (10.7-15.3); LYMPH % 7.3 % (8-40); MCH 31.3 pg (25.7-33.7); MCHC 34.3 g/dl (32.0-36.0); MEAN CELL VOLUME 91.3 fl (80-96); MONO % 2.2 % (3.8-10.2); NEUT % 89.8 % (42.8-82.8); PLATELET COUNT 361 10^3/uL (134-434); RBC 4.06 M/mm3 (3.60-5.2); RDW 13.4 % (11.6-15.6)
[2021-01-17] MEDS ORDERED: LORazepam 2 MG/ML SDV VIAL ONE (18:48)
[2021-01-17 18:56] LABS: ALBUMIN 4.3 g/dl (3.4-5.0); BLOOD UREA NITROGEN 10.9 mg/dL (7-18)
[2021-01-17 18:59] LABS: CREATININE 0.8 mg/dL (0.55-1.3)
[2021-01-17 19:00] LABS: BILIRUBIN,TOTAL 0.4 mg/dL (0.2-1)
[2021-01-17 19:01] LABS: TOT PROT 8.7 g/dl (6.4-8.2)
[2021-01-17] MEDS ORDERED: METOCLOPRAMIDE HCL INJECTION 10 MG/2 ML VIAL IVPUSH ONE (22:36)
[2021-01-17] MEDS ORDERED: METOCLOPRAMIDE HCL INJECTION 10 MG/2 ML VIAL ONE (22:40)
[2021-01-18 00:20] VITALS: BP 122/53; PULSE 87; TEMP 98.6
== END 2021-01-18 00:20 | disposition home or self-care (01) ==
LOC: JER 17:22
PROC: 3E0333Z Introduction of Anti-inflammatory into Peripheral Vein, Percutaneous Approach (ICD-10-PCS; principal; 2021-01-17)
PROC: 3E033GC Introduction of Other Therapeutic Substance into Peripheral Vein, Percutaneous Approach (ICD-10-PCS; 2021-01-17)
PROC: 3E033NZ Introduction of Analgesics, Hypnotics, Sedatives into Peripheral Vein, Percutaneous Approach (ICD-10-PCS; 2021-01-17)
PROC: 3E033GC Introduction of Other Therapeutic Substance into Peripheral Vein, Percutaneous Approach (ICD-10-PCS; 2021-01-17)
PROC: 3E033GC Introduction of Other Therapeutic Substance into Peripheral Vein, Percutaneous Approach (ICD-10-PCS; 2021-01-17)
DX: R11.2 Nausea with vomiting, unspecified (principal); R10.13 Epigastric pain
CPT/HCPCS: 36415; 76705-TC; 76817-TC; 80053; 83690; 84702; 84703; 85025; 93005; 93010; 99285-25; C9803; J0131; U0003; U0005

== ENCOUNTER 2021-01-19 00:04 | Observation (INO) | payer OTHER ==
[2021-01-19] MEDS: LACTATED RINGERS SOLUTION 1,000 ML/1,000 ML INFUS.BAG IV SCH (02:41)
[2021-01-19 02:55] LABS: BASO % 0.5 % (0-2.0); HEMATOCRIT 36.3 % (32.4-45.2); HEMOGLOBIN 12.6 GM/dL (10.7-15.3); LYMPH % 16.4 % (8-40); MCH 31.5 pg (25.7-33.7); MCHC 34.7 g/dl (32.0-36.0); MEAN CELL VOLUME 90.8 fl (80-96); MEAN PLT VOLUME 8.8 fl (7.5-11.1); MONO % 7.2 % (3.8-10.2); NEUT % 75.9 % (42.8-82.8); PLATELET COUNT 360 10^3/uL (134-434); RBC 3.99 M/mm3 (3.60-5.2); RDW 13.1 % (11.6-15.6); WHITE BLOOD COUNT 12.9 K/mm3 (4.0-10.0)
[2021-01-19] MEDS ORDERED: METOCLOPRAMIDE HCL INJECTION 10 MG/2 ML VIAL IVPUSH ONE (02:55)
[2021-01-19] MEDS ORDERED: morphine CARPU-JECT 2 MG/1 ML DISP.SYRIN IVPUSH ONE (02:57)
[2021-01-19 03:08] LABS: BLOOD UREA NITROGEN 8.7 mg/dL (7-18); CALCIUM 9.5 mg/dL (8.5-10.1)
[2021-01-19 03:12] LABS: CREATININE 0.7 mg/dL (0.55-1.3)
[2021-01-19 03:13] LABS: BILIRUBIN,TOTAL 0.7 mg/dL (0.2-1); TOT PROT 8.3 g/dl (6.4-8.2)
[2021-01-19] MEDS ORDERED: MORPHINE SULFATE 2 MG/ML VIAL ONE (03:18)
[2021-01-19] MEDS ORDERED: METOCLOPRAMIDE HCL INJECTION 10 MG/2 ML VIAL ONE (03:18)
[2021-01-19] MEDS ORDERED: ACETAMINOPHEN 325 MG TABLET (FP) PO PRN (05:10)
[2021-01-19] MEDS ORDERED: TRIMETHOBENZAMIDE HCL 300 MG CAPSULE PO PRN (05:14)
[2021-01-19] MEDS ORDERED: SODIUM CHLORIDE 1,000 ML IV SCH (05:15)
[2021-01-19] MEDS ORDERED: diphenhydrAMINE HCL 25 MG CAPSULE (FP) PO ONE (05:16)
[2021-01-19 09:45] LABS: HEMATOCRIT 35.3 % (32.4-45.2); MCH 30.8 pg (25.7-33.7); MCHC 33.9 g/dl (32.0-36.0); MEAN CELL VOLUME 90.9 fl (80-96); PLATELET COUNT 320 10^3/uL (134-434); RBC 3.88 M/mm3 (3.60-5.2); RDW 13.3 % (11.6-15.6); WHITE BLOOD COUNT 12.2 K/mm3 (4.0-10.0)
[2021-01-19 10:08] LABS: BLOOD UREA NITROGEN 7.8 mg/dL (7-18); CALCIUM 8.8 mg/dL (8.5-10.1); MAGNESIUM 2.2 mg/dL (1.8-2.4)
[2021-01-19 10:11] LABS: CREATININE 0.6 mg/dL (0.55-1.3)
[2021-01-19 10:12] LABS: PHOSPHOROUS 3.5 mg/dL (2.5-4.9)
[2021-01-19 10:37] VITALS: BMI 50.5
[2021-01-19] MEDS ORDERED: PT OWN MED DRAWER 7, Y5N ONE (18:51)
[2021-01-19] MEDS ORDERED: TRIMETHOBENZAMIDE HCL 200MG/2ML INJ IM ONE (21:12)
[2021-01-19] MEDS ORDERED: LACTATED RINGERS SOLUTION 1,000 ML with POTASSIUM CHLORIDE 40 MEQ IV ONE (21:22)
[2021-01-19] MEDS: KCL 10 MEQ IVPB 10 MEQ/100 ML INFUS.BAG IVPB SCH (22:28)
[2021-01-20] MEDS: KCL 10 MEQ IVPB 10 MEQ/100 ML INFUS.BAG IVPB SCH ×2 (00:24→02:02)
[2021-01-20] MEDS ORDERED: TRIMETHOBENZAMIDE HCL 200MG/2ML INJ IM ONE (04:46)
[2021-01-20 09:18] LABS: BASO % 0.6 % (0-2.0); EOS % 0.4 % (0-4.5); HEMATOCRIT 33.5 % (32.4-45.2); HEMOGLOBIN 11.6 GM/dL (10.7-15.3); LYMPH % 16.9 % (8-40); MCH 31.2 pg (25.7-33.7); MCHC 34.6 g/dl (32.0-36.0); MEAN CELL VOLUME 90.3 fl (80-96); MEAN PLT VOLUME 8.4 fl (7.5-11.1); NEUT % 76.1 % (42.8-82.8); PLATELET COUNT 313 10^3/uL (134-434); RBC 3.71 M/mm3 (3.60-5.2); RDW 12.9 % (11.6-15.6)
[2021-01-20 09:45] LABS: CHLORIDE 105 mmol/L (98-107); SODIUM 136 mmol/L (136-145)
[2021-01-20 09:47] LABS: CALCIUM 8.4 mg/dL (8.5-10.1)
[2021-01-20 09:48] LABS: ALBUMIN 3.3 g/dl (3.4-5.0); ANION GAP 8 MMOL/L (8-16); BLOOD UREA NITROGEN 4.1 mg/dL (7-18); CO2 23 mmol/L (21-32); GLUCOSE,RANDOM 89 mg/dL (74-106)
[2021-01-20 09:51] LABS: CREATININE 0.4 mg/dL (0.55-1.3); PHOSPHOROUS 2.3 mg/dL (2.5-4.9); SGOT/AST 8 U/L (15-37); SGPT/ALT 23 U/L (13-61)
[2021-01-20 09:52] LABS: BILIRUBIN,TOTAL 0.4 mg/dL (0.2-1); TOT PROT 6.8 g/dl (6.4-8.2)
[2021-01-20 09:54] LABS: ALK PHOS 54 U/L (45-117)
[2021-01-20] MEDS: LACTATED RINGERS SOLUTION 1,000 ML/1,000 ML INFUS.BAG IV SCH (10:16)
[2021-01-20] MEDS ORDERED: LACTATED RINGERS SOLUTION 1,000 ML with POTASSIUM CHLORIDE 40 MEQ IV ONE ×2 (10:35→11:00)
[2021-01-20] MEDS ORDERED: POTASSIUM PHOSPHATE 30 MM in SODIUM CHLORIDE 500 ML IVPB ONE (10:45)
[2021-01-20 10:59] LABS: URINE APPEARANCE CLOUDY; URINE BILIRUBIN NEGATIVE (NEGATIVE); URINE COLOR YELLOW; URINE GLUCOSE (UA) NEGATIVE (NEGATIVE); URINE KETONE NEGATIVE (NEGATIVE); URINE LEUK ESTERASE NEGATIVE (NEGATIVE); URINE NITRITE NEGATIVE (NEGATIVE); URINE PROTEIN NEGATIVE (NEGATIVE); URINE UROBILINOGEN 0.2 mg/dL (0.2-1.0)
[2021-01-20 11:06] LABS: EPI CELLS 10 /uL (0-25.1); HYALINE CASTS 6 /uL (0-3.1); URINE BACTERIA 2 /uL (0-1359); URINE RBC 14 /uL (0-23.9); URINE WBC 8 /uL (0-25.8)
[2021-01-20 11:32] LABS: URINE CRYSTALS MANY URIC ACID CRYST /hpf
[2021-01-20] MEDS: METOCLOPRAMIDE HCL INJECTION 10 MG/2 ML VIAL IVPUSH PRN ×2 (11:55→22:05)
[2021-01-20] MEDS ORDERED: PT OWN MED DRAWER 7, Y5N ONE (15:11)
[2021-01-20] MEDS ORDERED: LACTATED RINGERS SOLUTION 1,000 ML/1,000 ML INFUS.BAG IV SCH (20:00)
[2021-01-21] MEDS: METOCLOPRAMIDE HCL INJECTION 10 MG/2 ML VIAL IVPUSH PRN ×2 (05:36→13:44)
[2021-01-21 14:17] VITALS: BP 117/59; PULSE 78; TEMP 98.2
== END 2021-01-21 17:14 | disposition home or self-care (01) ==
LOC: JER 00:04 → JERBED 03:51 → INTOOBSV 03:51 → J8W 10:14
PROVIDERS: ADMIT Internal Medicine; ATTEND Internal Medicine
PROC: 3E033GC Introduction of Other Therapeutic Substance into Peripheral Vein, Percutaneous Approach (ICD-10-PCS; principal; 2021-01-19)
PROC: 3E0337Z Introduction of Electrolytic and Water Balance Substance into Peripheral Vein, Percutaneous Approach (ICD-10-PCS; 2021-01-19)
PROC: 3E033GC Introduction of Other Therapeutic Substance into Peripheral Vein, Percutaneous Approach (ICD-10-PCS; 2021-01-19)
DX: O26.891 Other specified pregnancy related conditions, first trimester (principal); O21.8 Other vomiting complicating pregnancy; R10.13 Epigastric pain; E66.01 Morbid (severe) obesity due to excess calories; Z68.43 Body mass index [BMI] 50.0-59.9, adult; F12.11 Cannabis abuse, in remission; Z3A.01 Less than 8 weeks gestation of pregnancy; Z91.010 Allergy to peanuts; Z91.013 Allergy to seafood
CPT/HCPCS: 36415; 80048; 80053; 81003; 83690; 83735; 84100; 84443; 84484; 85025; 85027; 86706; 86708; 87081; 87340; 87517; 87522; 93005; 93010; 96361; 96365; 96366; 96372; 99285-25; C9803; G0378; U0003; U0005

== ENCOUNTER 2021-04-05 03:54 | Emergency (ER) | payer OTHER ==
[2021-04-05 04:04] VITALS: BMI 46.3
[2021-04-05] MEDS ORDERED: DEXAMETHASONE SOD PHOSPHATE 10 MG/1 ML VIAL ONE (04:06)
[2021-04-05] MEDS ORDERED: DEXAMETHASONE SOD PHOSPHATE 10 MG/1 ML VIAL IM ONE (04:06)
[2021-04-05] MEDS ORDERED: SODIUM CHLORIDE FOR INHALATION 3 ML VIAL.NEB IH ONE (04:07)
[2021-04-05] MEDS ORDERED: SODIUM CHLORIDE 0.9% 500 ML INFUS.BAG IV ONE (04:07)
[2021-04-05] MEDS ORDERED: ACETAMINOPHEN 1000 MG/100 ML VIAL IVPB ONE (04:27)
[2021-04-05 04:33] LABS: BASO % 0.5 % (0-2.0); EOS % 3.8 % (0-4.5); HEMATOCRIT 37.9 % (32.4-45.2); HEMOGLOBIN 12.5 GM/dL (10.7-15.3); LYMPH % 21.5 % (8-40); MCH 30.7 pg (25.7-33.7); MCHC 33.1 g/dl (32.0-36.0); MEAN CELL VOLUME 92.9 fl (80-96); MEAN PLT VOLUME 8.2 fl (7.5-11.1); MONO % 8.9 % (3.8-10.2); NEUT % 65.3 % (42.8-82.8); PLATELET COUNT 350 10^3/uL (134-434); RBC 4.07 M/mm3 (3.60-5.2); RDW 13.3 % (11.6-15.6); WHITE BLOOD COUNT 11.3 K/mm3 (4.0-10.0)
[2021-04-05] MEDS ORDERED: ACETAMINOPHEN INJECTION 100 ML IVPB ONE (04:33)
[2021-04-05 04:53] LABS: CALCIUM 8.6 mg/dL (8.5-10.1)
[2021-04-05 04:54] LABS: ALBUMIN 3.1 g/dl (3.4-5.0); BLOOD UREA NITROGEN 10.6 mg/dL (7-18)
[2021-04-05 04:57] LABS: CREATININE 0.7 mg/dL (0.55-1.3)
[2021-04-05 04:58] LABS: BILIRUBIN,TOTAL 0.2 mg/dL (0.2-1); TOT PROT 6.8 g/dl (6.4-8.2)
[2021-04-05 10:47] VITALS: BP 111/55; PULSE 88; TEMP 98.2
== END 2021-04-05 10:48 | disposition home or self-care (01) ==
LOC: JER 03:54
PROC: 3E023GC Introduction of Other Therapeutic Substance into Muscle, Percutaneous Approach (ICD-10-PCS; principal; 2021-04-05)
PROC: 3E033GC Introduction of Other Therapeutic Substance into Peripheral Vein, Percutaneous Approach (ICD-10-PCS; principal; 2021-04-05)
DX: R07.0 Pain in throat (principal)
CPT/HCPCS: 36415; 70360-TC-FY; 70491-TC; 80053; 84703; 85025; 86308; 87651; 87804; 87807; 96372; 96374; 99285-25; C9803; J0131; J1100; Q9967; U0003; U0005

== ENCOUNTER 2021-07-15 04:54 | Emergency (ER) | payer SELFPAY ==
[2021-07-15 05:15] VITALS: BMI 51.5
[2021-07-15] MEDS ORDERED: METOCLOPRAMIDE HCL INJECTION 10 MG/2 ML VIAL IVPB ONE (05:26)
[2021-07-15] MEDS ORDERED: METOCLOPRAMIDE HCL INJECTION 10 MG/2 ML VIAL ONE (05:31)
[2021-07-15] MEDS ORDERED: SODIUM CHLORIDE 0.9% 500 ML INFUS.BAG IV ONE (06:02)
[2021-07-15 06:20] LABS: BASO % 0.3 % (0-2.0); EOS % 1.1 % (0-4.5); HEMATOCRIT 36.3 % (32.4-45.2); HEMOGLOBIN 11.9 GM/dL (10.7-15.3); LYMPH % 11.9 % (8-40); MCH 30.1 pg (25.7-33.7); MCHC 32.9 g/dl (32.0-36.0); MEAN CELL VOLUME 91.4 fl (80-96); MEAN PLT VOLUME 8.1 fl (7.5-11.1); NEUT % 79.7 % (42.8-82.8); PLATELET COUNT 314 10^3/uL (134-434); RBC 3.97 M/mm3 (3.60-5.2); WHITE BLOOD COUNT 11.8 K/mm3 (4.0-10.0)
[2021-07-15 06:35] LABS: ALBUMIN 3.4 g/dl (3.4-5.0); BLOOD UREA NITROGEN 11.9 mg/dL (7-18)
[2021-07-15 06:41] LABS: BILIRUBIN,TOTAL 0.2 mg/dL (0.2-1); CREATININE 0.7 mg/dL (0.55-1.3)
[2021-07-15] MEDS ORDERED: KETOROLAC TROMETHAMINE 15 MG/ML VIAL IVPUSH ONE (06:48)
[2021-07-15] MEDS ORDERED: CLINDAMYCIN HCL 300 MG CAPSULE PO ONE (06:49)
[2021-07-15] MEDS ORDERED: CLINDAMYCIN HCL 150 MG CAPSULE (FP) ONE (07:22)
[2021-07-15] MEDS ORDERED: KETOROLAC TROMETHAMINE 15 MG/ML VIAL ONE (07:22)
[2021-07-15 07:52] VITALS: BP 120/74; PULSE 98; TEMP 99
== END 2021-07-15 08:43 | disposition home or self-care (01) ==
LOC: JER 04:54
PROC: 3E033GC Introduction of Other Therapeutic Substance into Peripheral Vein, Percutaneous Approach (ICD-10-PCS; principal; 2021-07-15)
DX: R51.9 Headache, unspecified (principal)
CPT/HCPCS: 36415; 70450-TC; 80053; 84703; 85025; 99285-25

== ENCOUNTER 2021-11-23 00:40 | Emergency (ER) | payer OTHER ==
[2021-11-23 01:03] VITALS: BP 143/99; PULSE 97; TEMP 98; BMI 53.9
[2021-11-23] MEDS ORDERED: ACETAMINOPHEN 325 MG TABLET (FP) PO ONE (02:09)
[2021-11-23] MEDS ORDERED: LIDOCAINE 5% TOPICAL PATCH TP ONE (02:12)
[2021-11-23] MEDS ORDERED: ACETAMINOPHEN 325 MG TABLET (FP) ONE (02:22)
[2021-11-23] MEDS ORDERED: LIDOCAINE 5% TOPICAL PATCH ONE (02:22)
[2021-11-23] MEDS ORDERED: KETOROLAC TROMETHAMINE 30 MG/1 ML VIAL IM ONE (02:40)
[2021-11-23] MEDS ORDERED: KETOROLAC TROMETHAMINE 30 MG/1 ML VIAL ONE (03:46)
[2021-11-23] MEDS ORDERED: diazePAM 5 MG TABLET PO ONE (04:32)
[2021-11-23] MEDS ORDERED: diazePAM 5 MG TABLET ONE (04:33)
[2021-11-23] MEDS ORDERED: LIDOCAINE PATCH REMOVAL MC ONE (15:00)
== END 2021-11-23 04:57 | disposition home or self-care (01) ==
LOC: JER 00:40
PROC: 3E0233Z Introduction of Anti-inflammatory into Muscle, Percutaneous Approach (ICD-10-PCS; principal; 2021-11-23)
DX: S39.012A Strain of muscle, fascia and tendon of lower back, initial encounter (principal); V43.53XA Car driver injured in collision with pick-up truck in traffic accident, initial encounter
CPT/HCPCS: 84703; 99284-25

== ENCOUNTER 2023-07-09 12:14 | Emergency (ER) | payer OTHER ==
[2023-07-09 12:52] VITALS: BP 145/84; PULSE 95; RESP 18; TEMP 98.2; BMI 60.3
== END 2023-07-09 14:21 | disposition home or self-care (01) ==
LOC: JER 12:14
DX: Z97.5 Presence of (intrauterine) contraceptive device (principal)
CPT/HCPCS: 73060-TC-LT-FY; 99283-25

== ENCOUNTER 2024-02-20 20:28 | Emergency (ER) | payer OTHER ==
[2024-02-20 20:36] VITALS: BP 138/85; PULSE 102; RESP 16; TEMP 97.8; BMI 60.3
[2024-02-20] MEDS ORDERED: LIDOCAINE 4% PATCH TP ONE (21:10)
[2024-02-20] MEDS ORDERED: KETOROLAC TROMETHAMINE 30 MG/1 ML VIAL ONE (21:10)
[2024-02-20] MEDS ORDERED: ACETAMINOPHEN 500 MG TABLET (FP) ONE (21:10)
[2024-02-20] MEDS: LIDOCAINE 4% PATCH TP ONE (21:17)
[2024-02-20] MEDS: KETOROLAC TROMETHAMINE 30 MG/1 ML VIAL IM ONE (21:17)
[2024-02-20] MEDS: ACETAMINOPHEN 500 MG TABLET (FP) PO ONE (21:17)
[2024-02-20] MEDS: LIDOCAINE PATCH REMOVAL MC SCH (22:11)
== END 2024-02-20 22:32 | disposition home or self-care (01) ==
LOC: JERFT 20:28
PROC: 3E0133Z Introduction of Anti-inflammatory into Subcutaneous Tissue, Percutaneous Approach (ICD-10-PCS; principal; 2024-02-20)
DX: M54.50 Low back pain, unspecified (principal); M53.3 Sacrococcygeal disorders, not elsewhere classified; W01.0XXA Fall on same level from slipping, tripping and stumbling without subsequent striking against object, initial encounter
CPT/HCPCS: 72100-TC-FY; 72220-TC-FY; 96372; 99283-25